=== PATIENT | female | born 1960 | race Caucasian/White ===

== ENCOUNTER 2018-08-03 00:20 | Outpatient (CLI) | payer OTHER, SELFPAY ==
--- NOTE | 2018-08-03 08:15 | DI.MAMMO_ITS ---
SYMPTOM/DIAGNOSIS: SCREENING, Z12.31 MAMMOGRAMS: Mammograms were interpreted according to the usual protocol including computer analysis with CAD system, tomosynthesis and C view imaging. Comparison with prior examinations. Breast density B. No suspicious masses or microcalcifications are seen. There is no definite evidence of malignancy. IMPRESSION: Negative mammogram. Routine screening is recommended. Category I. MQSA ASSESSMENT OF FINDINGS: Negative. Category 1. Patient will receive a letter notifying them of these results. BI-RADS category B. There are scattered areas of fibroglandular density.
== END 2018-08-03 00:40 ==
PROVIDERS: PCP Physician Assistant Medical; Visit Provider Physician Assistant Medical
DX: Z12.31 Encounter for screening mammogram for malignant neoplasm of breast (principal)
CPT/HCPCS: 77063; 77067

== ENCOUNTER 2019-10-11 02:35 | Outpatient (CLI) | payer OTHER, SELFPAY ==
--- NOTE | 2019-10-11 | DI.MAMMO_ITS ---
EXAM: MAMMO SCREENING CLINICAL HISTORY: SCREENING,Z12.31 TECHNIQUE: Mammograms were interpreted according to the usual protocol including computer analysis w [employer] CAD system, tomosynthesis and C-view imaging. COMPARISON: 2010 through 2018 FINDINGS: The breasts are composed of heterogeneously dense fibroglandular densities, Breast Density category C . No suspicious masses or suspicious microcalcifications are seen. No skin thickening or abnormal axillary lymph nodes are seen. There has been no significant change from prior exams. IMPRESSION: BI-RADS Category 1: Negative mammogram. Yearly screening mammography is recommended. Breast Density Category C, heterogeneously dense tissue which decreases the sensitivity of the mammog ami. The mammogram demonstrates the patient's breast tissue is dense. Dense breast tissue is very common a nd is not abnormal but dense breast tissue can make it harder to find cancer on a mammogram. Also, de nse breast tissue may increase breast cancer risk. This information about the result of the mammogram report was provided to the patient to raise their awareness. Use this report when you speak with the patient about their risks for breast cancer, which includes their family history. At that time, you may recommend additional screening tests (Ultrasound or MRI) as they might be useful based on their r isk. A negative radiographic report should not delay biopsy if a dominant or clinically suspicious mass is present. Up to ten percent of cancers are not identified on mammography. A negative report may reinforce clinical impression. Adenosis and dense breasts may obscure an underlying neoplasm. False positive reports average 6 to 10%.
== END 2019-10-11 02:55 ==
PROVIDERS: PCP Physician Assistant Medical; Visit Provider Physician Assistant Medical
DX: Z12.31 Encounter for screening mammogram for malignant neoplasm of breast (principal)
CPT/HCPCS: 77063; 77067

== ENCOUNTER 2021-01-29 01:40 | Outpatient (CLI) | payer OTHER, SELFPAY ==
--- NOTE | 2021-01-29 | DI.MAMMO_ITS ---
Exam(s) MAMMO SCREENING EXAM: MAMMO SCREENING CLINICAL HISTORY: SCREENING, Z12.31 TECHNIQUE: Bilateral full field digital CC and MLO mammographic images were obtained with 3D tomosyn thesis and utilizing computer aided detection (CAD). COMPARISON: Available for comparison. FINDINGS: Masses/Architectural Distortion: None seen. Microcalcifications: No suspicious pleomorphic-type are seen. Skin Thickening/Nipple Retraction: None. IMPRESSION: 1. No significant interval change with no specific features of malignancy noted. 2. Unless there is more urgent need, screening mammography is recommended, as per [place] [employer] guidelines. BI-RADS Category 1 - Negative Breast Density - Category C - Heterogeneously dense Breast density category C or D implies that the patient has dense breast tissue. Dense breast tissue is very common and is not abnormal but dense breast tissue can make it harder to find cancer on a ma mmogram. Also, dense breast tissue may increase their breast cancer risk. This information about the result of the mammogram report was provided to the patient to raise their awareness. Use this report when you speak with the patient about their risks for breast cancer, which includes their family hist ory. At that time, you may recommend for more screening tests (Ultrasound or MRI) as they might be us eful based on their risk. A negative radiographic report should not delay biopsy if a dominant or clinically suspicious mass is present. Up to ten percent of cancers are not identified on mammography. A negative report may reinforce clinical impression. Adenosis and dense breasts may obscure an underlying neoplasm. False positive reports average 6 to 10%. Patient will receive a letter notifying them of these results.
== END 2021-01-29 02:00 ==
PROVIDERS: PCP Physician Assistant Medical; Visit Provider Physician Assistant Medical
DX: Z12.31 Encounter for screening mammogram for malignant neoplasm of breast (principal); R92.8 Other abnormal and inconclusive findings on diagnostic imaging of breast
CPT/HCPCS: 77063; 77067

== ENCOUNTER → 2022-04-13 01:45 | Outpatient (CLI) | payer OTHER, SELFPAY ==
--- NOTE | 2022-04-13 12:50 | DI.MAMMO_ITS ---
Exam(s) MAMMO SCREENING EXAM: MAMMO SCREENING CLINICAL HISTORY: SCREENING FOR BREAST CANCER TECHNIQUE: Mammograms were interpreted according to the usual protocol including computer analysis w [employer] CAD system, tomosynthesis and C-view imaging. COMPARISON: 2012 through 2020 FINDINGS: The breasts are composed of heterogeneously dense fibroglandular densities, Breast Density category C . No suspicious masses or suspicious microcalcifications are seen. No skin thickening or abnormal axillary lymph nodes are seen. There has been no significant change from prior exams. IMPRESSION: BI-RADS Category 1, Negative mammogram. Yearly screening mammography is recommended. Breast Density Category C, heterogeneously Dense. The mammogram demonstrates the patient's breast tissue is dense. Dense breast tissue is very common a nd is not abnormal but dense breast tissue can make it harder to find cancer on a mammogram. Also, de nse breast tissue may increase breast cancer risk. This information about the result of the mammogram report was provided to the patient to raise their awareness. Use this report when you speak with the patient about their risks for breast cancer, which includes their family history. At that time, you may recommend additional screening tests (Ultrasound or MRI) as they might be useful based on their r isk. A negative radiographic report should not delay biopsy if a dominant or clinically suspicious mass is present. Up to ten percent of cancers are not identified on mammography. A negative report may reinforce clinical impression. Adenosis and dense breasts may obscure an underlying neoplasm. False positive reports average 6 to 10%.
== END ==
PROVIDERS: PCP Physician Assistant Medical; Visit Provider Physician Assistant Medical
DX: Z12.31 Encounter for screening mammogram for malignant neoplasm of breast (principal)
CPT/HCPCS: 77063; 77067

== ENCOUNTER → 2023-04-16 00:51 | Outpatient (CLI) | payer MEDICARE, SELFPAY ==
--- NOTE | 2023-04-16 | DI.MAMMO_ITS ---
Exam(s) MAMMO SCREENING EXAM: MAMMO SCREENING CLINICAL HISTORY: SCREENING TECHNIQUE: Bilateral full field digital CC and MLO mammographic images were obtained with 3D tomosyn thesis and utilizing computer aided detection (CAD). COMPARISON: Available for comparison. FINDINGS: Masses/Architectural Distortion: None seen. Microcalcifications: No suspicious pleomorphic-type are seen. Skin Thickening/Nipple Retraction: None. IMPRESSION: 1. No significant interval change with no specific features of malignancy noted. 2. Unless there is more urgent need, screening mammography is recommended, as per [employer] guidelines. BI-RADS Category 1 - Negative Breast Density - Category C - Heterogeneously dense Breast density category C or D implies that the patient has dense breast tissue. Dense breast tissue is very common and is not abnormal but dense breast tissue can make it harder to find cancer on a ma mmogram. Also, dense breast tissue may increase their breast cancer risk. This information about the result of the mammogram report was provided to the patient to raise their awareness. Use this report when you speak with the patient about their risks for breast cancer, which includes their family hist ory. At that time, you may recommend for more screening tests (Ultrasound or MRI) as they might be us eful based on their risk. A negative radiographic report should not delay biopsy if a dominant or clinically suspicious mass is present. Up to ten percent of cancers are not identified on mammography. A negative report may reinforce clinical impression. Adenosis and dense breasts may obscure an underlying neoplasm. False positive reports average 6 to 10%. Patient will receive a letter notifying them of these results.
--- OUTSIDE RECORDS SUMMARY | 2023-04-16 00:57 | XMS_ITS | CCD ---
Author Name Unknown Address [address] [place] [phone] Organization Unknown Address [address] [place] [address] [id number] Care Team Providers Care B2B Appointment Setter Name Role Phone MANUEL COUGHLIN Evelyn Attending Physician [phone] Vital Signs Unknown or Not Available. Allergies Unknown or Not Available. Procedures Unknown or Not Available. History of Immunizations Unknown or Not Available. Problems Unknown or Not Available. Results [facility] COVID RHEONIX* - [place] ect Date/Time: 05/11/2022 12:55 Test Name Code Test Result Test Units Test Ref Rang e Tier- 61110-7 STAFF PRIORITY N/A SARS COV2 RNA: 57778-2 NEGATIVE N/A REFERENCE RANGE: NEGAT Active Medications Unknown or Not Available. Medications Administered During Visit Unknown or Not Available. Encounters Encounter Diagnosis Diagnosis Code Start Date Exposure to SARS-CoV-2 [id number] Social History Smoking Status Code Start Date End Date Former smoker [id number] Patient Decision Aids Unknown or Not Available. Discharge Instructions You were admitted to [facility] on 05/11/2022 18:24 with a principal diagnosis of Contact with and (suspected) exposure to COVID-19 You had the following tests done:[facility] COVID RHEONIX* You were discharged from [facility] on 05/11/2022 18:24 Should you have any questions prior to discharge, please contact a member of your healthcare team. If you have left the hospital and have any questions, please contact your primary care physician. Chief Complaint and Reason For Visit Unknown or Not Available. Function Status Unknown or Not Available. Plan of Care Unknown or Not Available. Referral/Transition of Care Unknown or Not Available.
--- OUTSIDE RECORDS SUMMARY | 2023-04-16 00:57 | XMS_ITS | CCD ---
Author Name Unknown Address [address] [place] [address] [phone] Organization Unknown Address [address], [place] [id number] Care Team Providers Care Dispensary Technician Name Role Phone MANUEL COUGHLIN Attending Physician [phone] MANUEL COUGHLIN Rounding (Secondary) Physician [phone] Vital Signs Unknown or Not Available. Allergies Unknown or Not Available. Procedures Unknown or Not Available. History of Immunizations Unknown or Not Available. Problems Unknown or Not Available. Results Unknown or Not Available. Active Medications Unknown or Not Available. Medications Administered During Visit Unknown or Not Available. Encounters Encounter Diagnosis Diagnosis Code Start Date Obstructive sleep apnea (adult) (pediatric) G473 3 09/10/2021 Social History Smoking Status Code Start Date End Date Former smoker [id number] Patient Decision Aids Unknown or Not Available. Discharge Instructions You were admitted to [facility] on 09/10/2021 09:06 with a principal diagnosis of Obstructive sleep apnea (adult) (pediatric) You were discharged from [facility] on 09/10/2021 09:07 Should you have any questions prior to [...]
--- OUTSIDE RECORDS SUMMARY | 2023-04-16 00:57 | XMS_ITS | Continuity of Care Document ---
Author Name Unknown Organization [facility] Address [address] [place] [address] Care Team Providers Care Platen Press Operator Apprentice Name Role Phone Barbie Bonilla Primary Care Physician Encounter [facility] Date(s): 03/31/23 - 03/31/23 [facility] [address] [place] [address] Discharge Disposition: Home Allergies, Adverse Reactions, Alerts Substance Reaction Severity Status BRAZIL NUT Anaphylactic reaction Unknown Active atorvastatin Muscle pain Unknown Active Assessment and Plan Future Appointments Future Scheduled Tests Radiology* BD Bone Density DEXA Axial Skeleton 03/31/23 Immunizations Given and Recorded Vaccine Date Status Refusal Reason SARS-CoV-2 (COVID-19) mRNA-1273 vaccine 05/23/20 R ecorded SARS-CoV-2 (COVID-19) mRNA-1273 vaccine 04/24/20 R ecorded influenza virus vaccine, live 01/05/20 Recorded influenza virus vaccine, live 01/24/19 Recorded influenza virus vaccine, live 01/24/18 Recorded zoster vaccine, inactivated 1 09/11/19 Recorded zoster vaccine, inactivated 05/11/19 Recorded Td(adult) unspecified formulation 05/12/17 Recorde d influenza virus vaccine, inactivated 01/22/11 Dre rded influenza virus vaccine, inactivated 01/24/10 Dre rded tetanus/diphth/pertuss (Tdap) adult/adol 07/25/05 Recorded varicella virus vaccine 04/26/00 Recorded hepatitis A adult vaccine 04/26/00 Recorded measles/mumps/rubella virus vaccine 04/26/00 Recor ded 1Result Comment: pt. tolerated vaccine well Medications citalopram 20 mg oral tablet See Instructions, TAKE ONE TABLET BY MOUTH EVERY DAY, # 90 tab, 3 Refill(s), Pharmacy: [id number] Start Date: 06/03/22 Status: Ordered EpiPen 2-Reji 0.3 mg injectable kit 0.3 mg =, IM, Once, # 2 EA, 0 Refill(s), Pharmacy: [id number] Start Date: 12/17/22 Status: Ordered omeprazole 20 mg oral delayed release capsule See Instructions, TAKE ONE CAPSULE BY MOUTH EVERY DAY, # 90 cap, 3 Refill(s), Pharmacy: [id number] Start Date: 06/03/22 Status: Ordered rosuvastatin 5 mg oral tablet See Instructions, TAKE ONE TABLET BY MOUTH EVERY DAY FOR 90 DAYS, # 90 tab, 3 Refill(s), Pharmacy: [id number] Start Date: 03/02/22 Status: Ordered Problem List Condition Confirmation Course Effective Dates Status H ealth Status Informant Adult health examination Confirmed Active Allergy to nut Confirmed Active Pain in joint, ankle and foot Confirmed Active Daytime somnolence Confirmed 05/11/19 Active Depressive disorder Confirmed 05/20/21 Active Dysuria Confirmed Active Gastroesophageal reflux disease Confirmed 11/16/19 Active Hand joint pain Confirmed Active Hyperlipidemia Confirmed Active Microhematuria Confirmed Active Obstructive sleep apnea syndrome Confirmed Active Pain in limb Confirmed Active Pharyngitis Confirmed Active Restless legs Confirmed 11/10/19 Active Snoring Confirmed 08/03/18 Active Procedures Procedure Date Related Diagnosis Body Site Status Hysterectomy 03/03/22 Completed Pap smear and HPV 1 05/22/18 Compl eted Cholecystectomy 04/25/01 Completed Bunionectomy 2 04/25/99 Completed Eye procedure 3 04/25/97 Completed 1PAP w/ HPV testing Negative for HPV 2018 2Left foot 3bilateral eye surg. Social History Social History Type Response Tobacco Former tobacco user Tobacco Use:. 1 Sex Female 89, a few cigarettes/day. quit 1987 Patient Care team information Care Team Personnel Name: Barbie Bonilla PA-C Position: Physician Member Role: Primary Care Physician Address: Address: [address] [place] [phone]
--- OUTSIDE RECORDS SUMMARY | 2023-04-16 00:58 | XMS_ITS | Continuity of Care Document ---
Author Name Unknown Organization [facility] Address [address] [place] [address] Encounter [facility] NBR [id number] Date(s): 03/26/22 - 03/26/22 [facility] [address] [place], [place] [address] Encounter Diagnosis Postoperative visit(Discharge Diagnosis) - 03/26/22 Cystocele and rectocele with incomplete uterovaginal prolapse(Discharge Diagnosis) - 03/26/22 Stress incontinence of urine(Discharge Diagnosis) - 03/26/22 Urge incontinence of urine(Discharge Diagnosis) - 03/26/22 Fatigue(Discharge Diagnosis) - 03/26/22 Discharge Disposition: Home or Self Care Attending Physician: Will Holly Allergies, Adverse Reactions, Alerts Substance Reaction Severity Status Risco nut Anaphylactic reaction Severe Active Assessment and Plan Future Appointments Functional Status 03/26/22 Other exposure to Infectious Disease Non e Medications aspirin 81 mg oral delayed release tablet 81 mg = 1 tab, Daily, 1 Unknown, 0 Refill(s) Start Date: 02/20/22 Status: Ordered citalopram 20 mg oral tablet 20 mg = 1 tab, Daily, 1 Unknown, 0 Refill(s) Start Date: 02/20/22 Status: Ordered Co-Q10 100 mg oral capsule 100 mg = 1 cap, Oral, Daily, # 30 cap, 0 Refill(s) Start Date: 03/13/22 Status: Ordered glucosamine-chondroitin 500 mg-400 mg oral capsule 1 tablet, Oral, BID, 1500 mg twice/day, 0 Refill(s) Start Date: 03/13/22 Status: Ordered ICaps with Lutein and Zeaxan oral tablet 1 tab, Oral, BID, # 60 tab, 0 Refill(s) Start Date: 03/26/22 Status: Ordered omeprazole 20 mg oral delayed release capsule 20 mg = 1 cap, Oral, Daily, 0 Refill(s) Start Date: 02/20/22 Status: Ordered rosuvastatin 5 mg oral tablet 5 mg = 1 tab, Daily, 1 Unknown, 0 Refill(s) Start Date: 02/20/22 Status: Ordered Vitamin D3 1000 intl units oral capsule 25 mcg = 1 cap, Oral, BID, # 75 cap, 0 Refill(s) Start Date: 03/13/22 Status: Ordered Problem List Condition Confirmation Course Effective Dates Status H ealth Status Informant Asthma Confirmed Active Cystocele and rectocele with incomplete uterovaginal prolapse Confirmed Active Stress incontinence of urine Confirmed Active GERD - Gastro-esophageal reflux disease Confirmed Active HLD - Hyperlipidemia Confirmed Active Joint pain Confirmed Active PORTIA - Obstructive sleep apnea 1 Confirmed Active Postoperative visit Confirmed Active Restless legs syndrome Confirmed Active Urge incontinence of urine Confirmed Active 1wears oral appliance Procedures Procedure Date Related Diagnosis Body Site Status Colporrhaphy A & P Repair 1 03/03/22 Completed Hysterectomy Vaginal 2 03/03/22 Co mpleted Sling Vaginal 3 03/03/22 Completed Aspiration of ectopic pregna ncy from cornu of fallopian tube Complete d Cholecystectomy Completed Excision of bunion Comple brenna HEARD Completed 1auto-populated from documented surgical case 2auto-populated from documented surgical case 3auto-populated from documented surgical case Vital Signs Most recent to oldest [Reference Range]: 1 Blood Pressure [90-140/60-90 mmHg] 146/9 8mmHg *HI* (03/26/22 11:35 AM) Weight 72.4 kg (03/26/22 11:35 AM) Weight Measured (lbs) 159.614 lb (03/26/22 11:35 AM) Social History Social History Type Response Smoking Status Smoking tobacco use: Former tobacco user;Never; Stopped at age: 58; entered on: 03/26/22 Sex Female Implantable Device List Procedure Provider Procedure Date Device Type Site Laparoscopy, surgical; sling operation for stress incontinence (eg, fascia or synthetic) Will Holly 03/03/22 Non Biological Bladder Device Identifier Serial Number Lot or Batch Number Manufacturing Date Expiration Date Distinct Identification Code MRI Safety Implantable Status Assigning Authority Unknown Unknown [id number] Unknown 08/22/24 Unknown Unknown Active Unk nown Physician Outpatient Note * Will Holly: PERFORM Event Display: Office Clinic Note Physician Authored Date: [id number] BIGG SO :1960 Age:62 years Sex:Female Visit Date:03/26/2022 Chief Complaint Postoperative follow-up History of Present Illness 62yo Female, The patient is here today for a follow-up??postoperative appointment. ??She had a Vaginal??Hysterectomy, Uterosacral Ligament Vaginal Suspension, TVT Vaginal Sling, and Anterior??/ Posterior??Colporrhaphy on 03/03/2022 due to Incomplete??Uterovaginal??Prolapse??with??Cystocele and??Rectocele and Stress??Urinary??Incontinence. ??She is here today to have a vaginal exam. ??2 weeks postoperative appointment??she was unable to tolerate??vaginal exam due to pain. ?? Pathology Report- inactive endometrium.?? Cervix,??myometrium, and serosa without pathologic abnormality. ?? Since her last appointment,??she has been doing well.?There is no??longer any pain. ??She hada single episode of light vaginal spotting??after chasing her dog. She is able to urinate??without difficulty.?She does not have??any??urgency incontinence symptoms or nocturia. ??There is occasional stress incontinence,but??only a few drops, nothing like??the??volume she would leak previously.?? Bowel movements are regular??each day??taking stool softeners.??She has fatigue and is worried that she may be anemic due to blood loss from surgery. Physical Exam Vitals & Measurements BP:??146/98?? WT:??72.4??kg?? GENERAL: Cooperative, alert, no acute distress. HEENT: Head is normocephalic, atraumatic. PERRLA.?? HEART: Regular rate and rhythm without murmur. LUNGS: Clear to auscultation bilaterally, no wheeze, rales or rhonchi. ABDOMEN: Soft, non-tender, nondistended. Bowel sounds active throughout. Incisions: Intact, healed well. No signs of infection. ? Vulva- Normal female genitalia Vagina: No abnormal discharge or blood.?Incisions intact. ??No palpable??masses Assessment/Plan 1.??Postoperative visit??Z48.89 Ordered: CBC w/ Diff, Blood, Routine, 03/26/22, Once, Lab Collect, Postoperative visit Fatigue, Order for future visit ?? 2.??Cystocele and rectocele with incomplete uterovaginal prolapse??N81.2 ?? 3.??Stress incontinence of urine??N39.3 ?? 4.??Urge incontinence of urine??N39.41 ?? 5.??Fatigue??R53.83 Ordered: CBC w/ Diff, Blood, Routine, 03/26/22, Once, Lab Collect, Postoperative visit Fatigue, Order for future visit ?? At today's appointment, we reviewed??the progress that she is making??so far. ??She is doing well??at this point after surgery. Future Orders CBC w/ Diff, Blood, Routine, 03/26/22, Once, Lab Collect, Postoperative visit Fatigue, Order for future visit Problem List/Past Medical History Ongoing Asthma Cystocele and rectocele with incomplete uterovaginal prolapse GERD - Gastro-esophageal reflux disease HLD - Hyperlipidemia Joint pain PORTIA - Obstructive sleep apnea Postoperative visit Restless legs syndrome Stress incontinence of urine Urge incontinence of urine Historical Procedure/Surgical History ? ?Colporrhaphy A & P Repair (03/03/2022)? ?Hysterectomy Vaginal (03/03/2022)? ?Sling Vaginal (03/03/2022)???Aspiration of ectopic from cornu of fallopian tube???Cholecystectomy???Excision of bunion???LASIK Medications aspirin 81 mg oral delayed release tablet, 81 mg= 1 tab, Daily citalopram 20 mg oral tablet, 20 mg= 1 tab, Daily Co-Q10 100 mg oral capsule, 100 mg= 1 cap, Oral, Daily glucosamine-chondroitin 500 mg-400 mg oral capsule, 1 tablet, Oral, BID ICaps with Lutein and Zeaxan oral tablet, 1 tab, Oral, BID omeprazole 20 mg oral delayed release capsule, 20 mg= 1 cap, Oral, Daily rosuvastatin 5 mg oral tablet, 5 mg= 1 tab, Daily Vitamin D3 1000 intl units oral capsule, 25 mcg= 1 cap, Oral, BID Allergies Risco nut??(Anaphylactic reaction) Social History Alcohol Current, 3-5 times per week Electronic Cigarette/Vaping Electronic Cigarette Use: Never. 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 Highest education level: University degree(s). Home/Environment Lives with Spouse. Living situation: Home/Independent. Substance Use Never Tobacco Former tobacco user Tobacco Use:. Stopped age 58 Years. Never Smokeless Tobacco use:. Electronically Signed on 03/26/22 12:14 PM Will Holly
--- OUTSIDE RECORDS SUMMARY | 2023-04-16 00:58 | XMS_ITS | CCD ---
Author Name Unknown Address [address] [place] [address] [id number] Organization Unknown Address [address] [place], [place] [id number] Care Team Providers Care Sourcing Assistant Name Role Phone SRIDHAR MCALLISTER Attending Physician [phone] Vital Signs Unknown or Not Available. Allergies Unknown or Not Available. Procedures Unknown or Not Available. History of Immunizations Unknown or Not Available. Problems Unknown or Not Available. Results Unknown or Not Available. Active Medications Unknown or Not Available. Medications Administered During Visit Unknown or Not Available. Encounters Encounter Diagnosis Diagnosis Code Start Date Obstructive sleep apnea (adult) (pediatric) G473 3 11/28/2020 Social History Smoking Status Code Start Date End Date Former smoker [id number] Patient Decision Aids Unknown or Not Available. Discharge Instructions You were admitted to [facility] on 11/28/2020 12:19 with a principal diagnosis of Obstructive sleep apnea (adult) (pediatric) You were discharged from [facility] on 11/28/2020 12:19 Should you have any questions prior to [...]
--- OUTSIDE RECORDS SUMMARY | 2023-04-16 00:58 | XMS_ITS | Continuity of Care Document ---
Author Name Unknown Organization [facility] Ambulatory Clinics Address [address] [place] [address] Encounter [facility] NBR [id number] Date(s): 02/20/22 - 02/20/22 [facility] Ambulatory Clinics [address] [place], [place] [address] Encounter Diagnosis Cystocele and rectocele with incomplete uterovaginal prolapse(Discharge Diagnosis) - 02/20/22 Urge incontinence of urine(Discharge Diagnosis) - 02/20/22 Stress incontinence of urine(Discharge Diagnosis) - 02/20/22 Discharge Disposition: Home or Self Care Attending Physician: Will Holly Assessment and Plan Future Appointments Medications aspirin 81 mg oral delayed release tablet 1 Unknown, 0 Refill(s) Start Date: 02/20/22 Status: Ordered citalopram 20 mg oral tablet 1 Unknown, 0 Refill(s) Start Date: 02/20/22 Status: Ordered omeprazole 20 mg oral delayed release capsule 0 Refill(s) Start Date: 02/20/22 Status: Ordered rosuvastatin 5 mg oral tablet 1 Unknown, 0 Refill(s) Start Date: 02/20/22 Status: Ordered Problem List Condition Confirmation Course Effective Dates Status [facility] atus Informant Cystocele and rectocele with incomplete uterovaginal prolapse Confirmed Active Stress incontinence of urine Confirmed Active Urge incontinence of urine Confirmed Active Social History Social History Type Response Sex Female
--- OUTSIDE RECORDS SUMMARY | 2023-04-16 00:58 | XMS_ITS | Continuity of Care Document ---
Author Name Unknown Organization [facility] Ambulatory Clinics Address [address] [place] [address] Encounter [facility] NBR [id number] Date(s): 03/13/22 - 03/13/22 [facility] Ambulatory Clinics [address] [place], [place] [address] Encounter Diagnosis Postoperative visit(Discharge Diagnosis) - 03/13/22 Cystocele and rectocele with incomplete uterovaginal prolapse(Discharge Diagnosis) - 03/13/22 Stress incontinence of urine(Discharge Diagnosis) - 03/13/22 Urge incontinence of urine(Discharge Diagnosis) - 03/13/22 Discharge Disposition: Home or Self Care Attending Physician: Will Holly Allergies, Adverse Reactions, Alerts Substance Reaction Severity Status [place] nut Anaphylactic reaction Severe Active Assessment and Plan Future Appointments Functional Status 03/13/22 Other exposure to Infectious Disease Non e [...] mg oral capsule 1 tablet, Oral, BID, 0 Refill(s) Start Date: 03/13/22 Status: Ordered ibuprofen 600 mg oral tablet 600 mg = 1 tab, Oral, every 6 hr, PRN as needed for pain, # 30 tab, 0 Refill(s), Pharmacy: [facility], 163, cm, 03/03/22 16:04:00 EST, Height/Length Dosing, 73, kg, 03/03/22 16:04:00 EST,Weight Dosing Start Date: 03/03/22 Status: Ordered omeprazole 20 mg oral delayed release capsule 20 mg = 1 cap, Oral, Daily, 0 Refill(s) Start Date: 02/20/22 Status: Ordered PreserVision AREDS 2 oral capsule 1 cap, Oral, BID, # 60 cap, 0 Refill(s) Start Date: 03/13/22 Status: Ordered rosuvastatin 5 mg oral tablet [...] [Reference Range]: 1 Blood Pressure [90-140/60-90 mmHg] 142/9 0mmHg *HI* (03/13/22 8:33 AM) Weight 72.5 kg (03/13/22 8:33 AM) Weight Measured (lbs) 159.835 lb (03/13/22 8:33 AM) [place] Body Weight Calculated 54.7 kg (03/13/22 8:33 AM) Height 162.56 cm (03/13/22 8:33 AM) Height/Length Measured (inches) 64 inch (03/13/22 8:33 AM) BSA Measured 1.81 m2 (03/13/22 8:33 AM) Body Mass Index 27.44 kg/m2 (03/13/22 8:33 AM) Social History Social History Type Response Tobacco Former tobacco user Tobacco Use:. Stopped age 58 Years. Sex Female Implantable Device List Procedure Provider Procedure Date Device Type Site Laparoscopy, surgical; sling operation for stress incontinence (eg, fascia or synthetic) Will Holly 03/03/22 Non Biological Bladder Device Identifier Serial Number Lot or Batch Number Manufacturing Date Expiration Date Distinct Identification Code MRI Safety Implantable Status Assigning Authority Unknown Unknown [id number] Unknown 08/22/24 Unknown Unknown Active k [facility] Discharge Instructions Follow Up Care 01/27/2022 18:29:03 With:Will Holly Address: [address] [place] [id number] When:Within 10 Day(s) Comments:Postoperative follow-up Physician Outpatient Note * Will Holly: PERFORM Event Display: Office Clinic Note Physician Authored Date: [id number] BIGG SO :1960 Age:61 years Sex:Female Visit Date:03/13/2022 Chief Complaint Two week post op appointment - surgery 03/03/2022 History of Present Illness 61yo Female, The patient is here today for a 2 weeks Postoperative appointment. ??She had a Vaginal??Hysterectomy, Uterosacral Ligament Vaginal Suspension, TVT Vaginal Sling, and Anterior??/ Posterior??Colporrhaphy on 03/03/2022 due to Incomplete??Uterovaginal??Prolapse??with??Cystocele and??Rectocele and Stress??Urinary??Incontinence. ?? Pathology Report- inactive endometrium.?? Cervix,??myometrium, and serosa without pathologic abnormality. ?? Since surgery,??she has been doing well.?? She still has??some??pain??in the suprapubic region and perineum.?? She continues to take??ibuprofen and Tylenol. ??She has not??needed oxycodone for several days.?? There is no fever, nausea, vomiting,??or dysuria. ??There is light vaginal spotting at times. ??She is able to urinate??without difficulty and is having normal bowel movements. Physical Exam Vitals & Measurements BP:??142/90?? HT:??162.56??cm?? WT:??72.5??kg?? BMI:??27.44?? BSA:??1.81?? GENERAL: Cooperative, alert, no acute distress. HEENT: Head is normocephalic, atraumatic. PERRLA.?? HEART: Regular rate and rhythm without murmur. LUNGS: Clear to auscultation bilaterally, no wheeze, rales or rhonchi. ABDOMEN: Soft, non-tender, nondistended. Bowel sounds active throughout. Incisions: Intact, healing well.?? No signs of infection. EXTREMITIES: No edema or tenderness. NEURO: CN II-XII grossly intact. Vulva:Normal external female genitalia Vagina: No abnormal discharge or blood.?Unable to do internal exam due to patient discomfort. Assessment/Plan 1.??Postoperative visit??Z48.89 2.??Cystocele and rectocele with incomplete uterovaginal prolapse??N81.2 3.??Stress incontinence of urine??N39.3 4.??Urge incontinence of urine??N39.41 At today's appointment, we reviewed the findings at the time of surgery and the Pathology Report. ??She is progressing well??without any problems.?? I asked her to come back to the office??in 1 to 2 weeks??after the holiday??for an exam. Follow Up Instructions With When Contact Information Will Holly In 10 days [address] [place] [address] Additional Instructions: Postoperative follow-up Problem List/Past Medical History Ongoing Asthma Cystocele [...] mg oral capsule, 1 tablet, Oral, BID ibuprofen 600 mg oral tablet, 600 mg= 1 tab, Oral, every 6 hr, PRN omeprazole 20 mg oral delayed release capsule, 20 mg= 1 cap, Oral, Daily PreserVision AREDS 2 oral capsule, 1 cap, Oral, BID rosuvastatin 5 mg oral tablet, 5 mg= 1 tab, Daily Vitamin D3 1000 intl units oral capsule, 25 mcg= 1 cap, Oral, BID Allergies [place] nut??(Anaphylactic reaction) Social History Alcohol Current, 3-5 times per week Electronic Cigarette/Vaping Electronic Cigarette Use: Never. 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 Highest education level: University degree(s). Home/Environment Lives with Spouse. Living situation: Home/Independent. Substance Use Never Tobacco Former tobacco user Tobacco Use:. Stopped age 58 Years. Electronically Signed on 03/13/22 09:20 AM Will Holly
--- OUTSIDE RECORDS SUMMARY | 2023-04-16 00:58 | XMS_ITS | Continuity of Care Document ---
Author Name Unknown Organization [facility] Address [address] [place] [id number] Encounter [facility] NBR [id number] Date(s): 03/26/22 - 03/26/[address] [address] [place] Discharge Disposition: Home or Self Care Attending Physician: Will Holly Admitting Physician: Will Holly Allergies, Adverse Reactions, Alerts Substance Reaction Severity Status [place] nut Anaphylactic reaction Severe Active Assessment and Plan Future Appointments Medications aspirin [...] surgical case 3auto-populated from documented surgical case Results Laboratory List Name Date Automated Diff 03/26/22 CBC w/ Diff 03/26/22 Most recent to oldest [Reference Range]: 1 WBC [4.8-10.8 K/mcL] 9.5 K/mcL (03/26/22 12:42 PM) RBC [4.20-6.10 Million/mcL] 4.20 Million /mcL (03/26/22 12:42 PM) Neutro Auto [42.2-75.2 %] 62.1 % (03/26/22 12:42 PM) Lymph Auto [20.5-51.1 %] 26.2 % (03/26/22 12:42 PM) [place] Auto [1.7-9.3 %] 7.8 % (03/26/22 12:42 PM) Basophil Auto [0.0-0.8 %] 0.7 % (03/26/22 12:42 PM) Baso Absolute [0.0-0.2 K/mcL] 0.1 K/mcL (03/26/22 12:42 PM) MCV [80.0-99.0 fL] 91.9 fL (03/26/22 12:42 PM) MCHC [32.0-36.0 g/dL] 33.7 g/dL (03/26/22 12:42 PM) Lymph Absolute [1.2-3.4 K/mcL] 2.5 K/mcL (03/26/22 12:42 PM) Hct [37.0-52.0 %] 38.6 % (03/26/22 12:42 PM) [place] Absolute [0.1-0.6 K/mcL] 0.7 K/mcL *HI* (03/26/22 12:42 PM) MCH [27.0-31.0 pg] 31.0 pg (03/26/22 12:42 PM) Neutro Absolute [1.4-6.5 K/mcL] 5.9 K/mc L (03/26/22 12:42 PM) Hgb [12.0-18.0 g/dL] 13.0 g/dL (03/26/22 12:42 PM) MPV [7.4-10.4 fL] 9.2 fL (03/26/22 12:42 PM) Platelets [130-400 K/mcL] 426 K/mcL *HI* (03/26/22 12:42 PM) Eos Absolute [0.0-0.2 K/mcL] 0.3 K/mcL *HI* (03/26/22 12:42 PM) RDW-CV [11.5-14.5 %] 13.4 % (03/26/22 12:42 PM) Imm Gran Absolute 0.02 *NA* (03/26/22 12:42 PM) Imm Gran Auto [0.0-0.5 %] 0.2 % (03/26/22 12:42 PM) Eos, Auto [0.00-3.00 %] 3.00 % (03/26/22 12:42 PM) Social History Social History Type Response Smoking [...] Safety Implantable Status Assigning Authority Unknown Unknown [id number] Unknown 08/22/24 Unknown Unknown Active Unk ebonyn
--- OUTSIDE RECORDS SUMMARY | 2023-04-16 00:58 | XMS_ITS | Continuity of Care Document ---
Author Name Unknown Organization [facility] Ambulatory Clinics Address [address] [place] [address] Care Team Providers Care Wirer Passenger Car Name Role Phone RAJ SIU Primary Care Physician [phone] Encounter [facility] NBR [id number] Date(s): 05/04/22 - 05/04/22 [facility] Ambulatory Clinics [address] [place], [place] [address] Encounter Diagnosis Postoperative visit(Discharge Diagnosis) - 05/04/22 Discharge Disposition: Home or Self Care Attending Physician: Will Holly Allergies, Adverse Reactions, Alerts Substance Reaction Severity Status [place] nut Anaphylactic reaction Severe Active Functional Status 05/04/22 Other exposure to Infectious Disease Non e [...] 0 Refill(s) Start Date: 03/13/22 Status: Ordered estradiol 0.1 mg/g vaginal cream See Instructions, 1 g VAG every night for 7 nights then twice weekly, # 42.5 g, 0 Refill(s), Pharmacy: [id number], 163, cm, 03/03/22 16:04:00 EST, Height/Length Dosing, 73, kg, 03/03/22 16:04:00 EST, Weight Dosing Start Date: 04/13/22 Status: Ordered glucosamine-chondroitin 500 mg-400 mg oral [...] Cholecystectomy Completed Excision of bunion Comple brenna IRAJESSIE Completed 1auto-populated from documented surgical case 2auto-populated from documented surgical case 3auto-populated from documented surgical case Vital Signs Most recent to oldest [Reference Range]: 1 Blood Pressure [90-140/60-90 mmHg] 146/9 0mmHg *HI* (05/04/22 9:55 AM) Weight 72.8 kg (05/04/22 9:55 AM) Weight Measured (lbs) 160.496 lb (05/04/22 9:55 AM) Social History Social History Type Response [...] Safety Implantable Status Assigning Authority Unknown Unknown [id number] Unknown 08/22/24 Unknown Unknown Active Unk ebonyn Physician Outpatient Note * Will Holly: PERFORM Event Display: Office Clinic Note Physician Authored Date: [id number] BIGG SO :1960 Age:62 years Sex:Female Visit Date:05/04/2022 Primary Care Physician: RAJ SIU Chief Complaint Postoperative appointment History of Present Illness 62yo Female, The patient is here today for a Postoperative Follow-up??appointment. ??She had a Vaginal??Hysterectomy, Uterosacral Ligament Vaginal Suspension, TVT Vaginal Sling, and Anterior??/ Posterior??Colporrhaphy on 03/03/2022 due to Incomplete??Uterovaginal??Prolapse??with??Cystocele and??Rectocele and Stress??Urinary??Incontinence.?? At her last appointment on??04/13/2022, parts of??her??vaginal incisions had not completely??healed, and along with vaginal atrophy??recommended a course of??vaginal estradiol cream. ?? Pathology Report- inactive endometrium.?? Cervix,??myometrium, and serosa without pathologic abnormality. ?? Since her last appointment,??she has been doing well.?There is no??longer any pain.??She is able to urinate??without difficulty and is having normal bowel movements. ??Occasional??RICHARD??with sneezing, no??urinary urgency.?No vaginal bleeding or discharge. Physical Exam Vitals & Measurements BP:??146/90?? WT:??72.8??kg?? GENERAL: Cooperative, alert, no acute distress. HEENT: Head is normocephalic, atraumatic. PERRLA.?? HEART: Regular rate and rhythm without murmur. LUNGS: Clear to auscultation bilaterally, no wheeze, rales or rhonchi. ABDOMEN: Soft, non-tender, nondistended. Bowel sounds active throughout. INCISIONS: Intact, healed well.?? No signs of infection. EXTREMITIES: No edema or tenderness. ?? Vulva:Normal external female genitalia Vagina: Atrophic mucosa. ??Vaginal cuff and??Incisions intact, healed well.??No abnormal discharge or blood.?? Assessment/Plan 1.??Postoperative visit??Z48.89 At today's appointment, we reviewed??her surgery and postoperative course.?? She has healed??well and may??resume??her usual??activities. Problem List/Past Medical History Ongoing Asthma Cystocele [...] capsule, 100 mg= 1 cap, Oral, Daily estradiol 0.1 mg/g vaginal cream, See Instructions glucosamine-chondroitin 500 mg-400 mg oral capsule, 1 tablet, Oral, BID ICaps with Lutein and [place] oral tablet, 1 tab, Oral, BID omeprazole 20 mg oral delayed release capsule, 20 mg= 1 cap, Oral, Daily rosuvastatin 5 mg oral tablet, 5 mg= 1 tab, Daily Vitamin D3 1000 intl units oral capsule, 25 mcg= 1 cap, Oral, BID Allergies [place] nut??(Anaphylactic reaction) Social History Alcohol Current, 3-5 times per week Electronic Cigarette/Vaping Electronic Cigarette Use: Never. 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 Highest education level: University degree(s). Home/Environment Lives with Spouse. Living situation: Home/Independent. Substance Use Never Tobacco Former tobacco user Tobacco Use:. Stopped age 58 Years. Never Smokeless Tobacco use:. Electronically Signed on 05/04/22 10:16 AM Will Holly Patient Care team information Personnel Name: RAJ SIU Address: Address: [address] [place], [place] [address], [place] [address]-
--- OUTSIDE RECORDS SUMMARY | 2023-04-16 00:58 | XMS_ITS | Continuity of Care Document ---
Author Name Unknown Organization [facility] Address [address] [place] [id number] Care Team Providers Care Director Economic Name Role Phone RAJ SIU Primary Care Physician [phone] Encounter [facility] NBR [id number] Date(s): 07/02/22 - 07/02/[address] [address] [place] Encounter Diagnosis Dysuria(Discharge Diagnosis) - 07/02/22 Hematuria(Discharge Diagnosis) - 07/02/22 Discharge Disposition: Home or Self Care Attending Physician: Will Holly Admitting Physician: Will Holly Allergies, Adverse Reactions, Alerts Substance Reaction Severity Status [place] nut Anaphylactic reaction Severe Active Assessment and Plan Future Appointments Diagnostic Tests Pending * Urine Culture 07/02/22 Future Scheduled Tests Laboratory* Urine Culture 06/30/22 Medications aspirin 81 mg oral delayed release [...] weekly, # 42.5 g, 0 Refill(s), Pharmacy: [id number], 163, cm, 03/03/22 16:04:00 EST, Height/Length [...] surgical case Results Laboratory List Name Date .Urinalysis POCT 07/02/22 Most recent to oldest [Reference Range]: 1 Specific [place], Ur POC 1.000 *NA* (07/02/22 9:20 AM) Specimen Color POC [Yellow] Light Yellow (07/02/22 9:20 AM) Glucose, Urine POC Negative mg/dL *NA* (07/02/22 9:20 AM) Bilirubin, Urine POC [Negative] Negative (07/02/22 9:20 AM) Ketones, Urine POC [Negative mg/dL] Nega tive mg/dL (07/02/22 9:20 AM) Blood, Urine POC [Negative] Large *ABN* (07/02/22 9:20 AM) pH, Urine POC 6.50 *NA* (07/02/22 9:20 AM) Protein, Urine POC [Negative mg/dL] Trac e mg/dL *ABN* (07/02/22 9:20 AM) Urobilinogen, Urine POC [0.2] 0.2 (07/02/22 9:20 AM) Nitrite, Urine POC [Negative] Negative (07/02/22 9:20 AM) Leuk Esterase, Urine POC [Negative] Nega tive (07/02/22 9:20 AM) Clarity, Urine POC [Clear] Clear (07/02/22 9:20 AM) Social History Social History Type Response [...] Safety Implantable Status Assigning Authority Unknown Unknown [id number] Unknown 08/22/24 Unknown Unknown Active Nataliya torres Patient Care team information Care Team Personnel Name: RAJ SIU Position: No Access Member Role: Primary Care Physician Address: Address: [address] [place] [address] Care Team Related Persons Name: DULCE SO Address: Home [address] [place] [address] [facility] Name: DULCE SO Address: Home [address] [place], [place] [id number] [facility]
--- OUTSIDE RECORDS SUMMARY | 2023-04-16 00:58 | XMS_ITS | Continuity of Care Document ---
Author Name Unknown Organization [facility] Address [address] [place] [id number] Encounter LTTL_VA FIN NBR [id number] Date(s): 03/03/22 - 03/04/[address] [address] Encounter Diagnosis Status post vaginal hysterectomy(Discharge Diagnosis) - 03/03/22 Status post anterior colporrhaphy(Discharge Diagnosis) - 03/03/22 History of stress incontinence procedure using tension free vaginal tape (Discharge Diagnosis) - 03/03/22 Cystocele and rectocele with incomplete uterovaginal prolapse(Discharge Diagnosis) - 03/03/22 Stress incontinence of urine(Discharge Diagnosis) - 03/03/22 Incomplete uterovaginal prolapse(Final) - Urge incontinence(Final) - Stress incontinence (female) (male)(Final) - Contact with and (suspected) exposure to COVID-19(Final) - Discharge Disposition: Home or Self Care Attending Physician: Will Holly Admitting Physician: Will Holly Allergies, Adverse Reactions, Alerts 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 03/03/22 Dinner Percent 100 03/03/22 Living Environment No Living Environmen t Information Available Lives With Spouse Living Situation Home independently 03/03/22 Family Member Travel History No recent t ravel Recent Travel History No recent travel Other exposure to Infectious Disease Non e 03/03/22 Anti-Embolism Device Activity: In place 03/03/22 Anti-Embolism Site Condition: No complic ations 03/03/22 ADLs Independent Antiembolism Device Intermittent pneumat ic compression devices, knee high, bilat Medications aspirin 81 mg oral delayed release tablet 81 mg = 1 tab, Daily, 1 Unknown, 0 Refill(s) Start Date: 02/20/22 Status: Ordered citalopram 20 mg oral tablet 20 mg = 1 tab, Daily, 1 Unknown, 0 Refill(s) Start Date: 02/20/22 Status: Ordered ibuprofen 600 mg oral tablet 600 mg = 1 tab, Oral, every 6 hr, PRN as needed for pain, # 30 tab, 0 Refill(s), Pharmacy: [facility], 163, cm, 03/03/22 16:04:00 EST, Height/Length Dosing, 73, kg, 03/03/22 16:04:00 EST,Weight Dosing Start Date: 03/03/22 Status: Ordered omeprazole 20 mg oral delayed release capsule 20 mg = 1 cap, Oral, Daily, 0 Refill(s) Start Date: 02/20/22 Status: Ordered oxyCODONE 5 mg oral capsule 5 mg = 1 cap, Oral, every 6 hr, PRN as needed for pain, # 8 cap, 0 Refill(s), Pharmacy: [facility], 163, cm, 03/03/22 16:04:00 EST, Height/Length Dosing, 73, kg, 03/03/22 16:04:00 EST, Weight Dosing Start Date: 03/03/22 Status: Ordered ProAir HFA 90 mcg/inh inhalation aerosol 1 puffs, Inhale, every 4 hr, PRN as needed for wheezing, # 8.5 g, 0 Refill(s) Start Date: 02/27/22 Status: Ordered rosuvastatin 5 mg oral tablet [...] - Obstructive sleep apnea 1 Confirmed Active Restless legs syndrome Confirmed Active [...] surgical case Results Laboratory List Name Date CBC w/ Diff 03/04/22 Automated Diff 03/03/22 CBC w/ Diff 03/03/22 SARS-CoV-2 (COVID-19) PCR (GeneXpert) (C OVID 19 (GeneXpert)) 03/03/22 Automated Diff 03/02/22 Most recent to oldest [Reference Range]: 1 2 WBC [4.8-10.8 K/mcL] 8.0 K/mcL (03/04/22 6:21 AM) 6.7 K/mcL (03/03/22 6:56 AM) RBC [4.20-6.10 Million/mcL] 3.41 Million /mcL *LOW* (03/04/22 6:21 AM) 4.44 Million/mcL (03/03/22 6:56 AM) Neutro Auto [42.2-75.2 %] 67.1 % (03/04/22 6:21 AM) 62.1 % (03/03/22 6:56 AM) Lymph Auto [20.5-51.1 %] 23.2 % (03/04/22 6:21 AM) 24.9 % (03/03/22 6:56 AM) Highland Auto [1.7-9.3 %] 8.1 % (03/04/22 6:21 AM) 7.4 % (03/03/22 6:56 AM) Basophil Auto [0.0-0.2 %] 0.6 % *HI* (03/04/22 6:21 AM) 1.2 % *HI* (03/03/22 6:56 AM) Baso Absolute [0.0-0.2 K/mcL] 0.0 K/mcL (03/04/22 6:21 AM) 0.1 K/mcL (03/03/22 6:56 AM) MCV [80.0-99.0 fL] 92.1 fL (03/04/22 6:21 AM) 90.8 fL (03/03/22 6:56 AM) MCHC [32.0-36.0 g/dL] 33.8 g/dL (03/04/22 6:21 AM) 34.0 g/dL (03/03/22 6:56 AM) Lymph Absolute [1.2-3.4 K/mcL] 1.9 K/mcL (03/04/22 6:21 AM) 1.7 K/mcL (03/03/22 6:56 AM) Hct [37.0-52.0 %] 31.4 % *LOW* (03/04/22 6:21 AM) 40.3 % (03/03/22 6:56 AM) Highland Absolute [0.1-0.6 K/mcL] 0.6 K/mcL (03/04/22 6:21 AM) 0.5 K/mcL (03/03/22 6:56 AM) MCH [27.0-31.0 pg] 31.1 pg *HI* (03/04/22:21 AM) 30.9 pg (03/03/22 6:56 AM) Neutro Absolute [1.4-6.5 K/mcL] 5.4 K/mc L (03/04/22 6:21 AM) 4.1 K/mcL (03/03/22 6:56 AM) Hgb [12.0-18.0 g/dL] 10.6 g/dL 1 *LOW* (03/04/22 6:21 AM) 13.7 g/dL (03/03/22 6:56 AM) MPV [7.4-10.4 fL] 9.5 fL (03/04/22 6:21 AM) 9.1 fL (03/03/22 6:56 AM) Platelets [130-400 K/mcL] 251 K/mcL (03/04/22 6:21 AM) 317 K/mcL (03/03/22 6:56 AM) Eos Absolute [0.0-0.2 K/mcL] 0.1 K/mcL (03/04/22 6:21 AM) 0.3 K/mcL *HI* (03/03/22 6:56 AM) RDW-CV [11.5-14.5 %] 12.9 % (03/04/22 6:21 AM) 12.6 % (03/03/22 6:56 AM) Imm Gran Absolute 0.01 *NA* (03/04/22 6:21 AM) 0.02 *NA* (03/03/22 6:56 AM) Imm Gran Auto [0.0-0.5 %] 0.1 % (03/04/22 6:21 AM) 0.3 % (03/03/22 6:56 AM) SARS-CoV-2 (COVID-19) PCR (G eneXpert) [Negative] Negative (03/03/22 6:25 AM) Employed in healthcare? No *NA* (03/03/22 6:25 AM) Symptomatic as defined by CDC? No *NA* (03/03/22 6:25 AM) Hospitalized due to COVID-19? No *NA* (03/03/22 6:25 AM) In ICU? No *NA* (03/03/22 6:25 AM) Group care resident? No *NA* (03/03/22 6:25 AM) status? Not *NA* (03/03/22 6:25 AM) Eos, Auto [0.00-3.00 %] 0.90 % (03/04/22 6:21 AM) 4.10 % *HI* (03/03/22 6:56 AM) 1Result Comment: Results verified by repeat analysis. Vital Signs Most recent to oldest [Reference Range]: 1 2 3 Temperature Temporal Artery [36-38 Deg C] 37.3 Deg C (03/04/22 7:35 AM) 37.3 Deg C (03/04/22 5:00 AM) 37.7 Deg C (03/04/22 12:00 AM) Temperature Temporal Artery (DegF) [97.3-100 Deg F] 99.14 Deg F (03/04/22 7:35 AM) 99.14 Deg F (03/04/22 5:00 AM) 99.86 Deg F (03/04/22 12:00 AM) Peripheral Pulse Rate [60-100 bpm] 70 bpm (03/04/22 5:00 AM) 62 bpm (03/04/22 12:00 AM) 89 bpm (03/03/22 7:30 PM) Heart Rate Monitored [60-100 bpm] 65 bpm (03/04/22 7:35 AM) 67 bpm (03/03/22 6:35 AM) Respiratory Rate [12-24 br/min] 16 br/min (03/04/22 7:35 AM) 18 br/min (03/04/22 5:00 AM) 18 br/min (03/04/22 12:00 AM) Blood Pressure [90-140/60-90 mmHg] 145/86mmHg *HI* (03/04/22 7:35 AM) 140/74mmHg (03/04/22 5:00 AM) 145/91mmHg *HI* (03/04/22 12:00 AM) Mean Arterial Pressure, Cuff [65-140 mmHg] 106 mmHg (03/04/22 7:35 AM) 94 mmHg (03/03/22 4:00 PM) 101 mmHg (03/03/22 12:33 PM) Mean Arterial Pressure Cuff 98 mmHg (03/03/22 12:33 PM) 81 mmHg (03/03/22 11:38 AM) 89 mmHg (03/03/22 11:25 AM) Weight 73.000 kg (03/03/22 4:02 PM) 73.000 kg (03/03/22 3:57 PM) 73.000 kg (02/27/22 1:53 PM) Weight Dosing 73.000 kg (03/03/22 4:02 PM) 73.000 kg (03/03/22 3:57 PM) 73.000 kg (02/27/22 1:53 PM) Height 163.000 cm (03/03/22 4:02 PM) 163.000 cm (03/03/22 3:57 PM) 163.000 cm (02/27/22 1:53 PM) Height/Length Dosing 163.000 cm (03/03/22 4:02 PM) 163.000 cm (03/03/22 3:57 PM) 163.000 cm (02/27/22 1:53 PM) Body Mass Index 27.480 kg/m2 (03/03/22 4:02 PM) 27.480 kg/m2 (03/03/22 3:57 PM) Social History Social History Type Response Tobacco [...] Safety Implantable Status Assigning Authority Unknown Unknown [id number] Unknown 08/22/24 Unknown Unknown Active k [facility] Discharge Instructions Patient Education 03/04/2022 06:59:31 Vaginal Hysterectomy, Care After Vaginal Hysterectomy, Care After The following information offers guidance on how to care for yourself after your procedure. Your health care provider may also give you more specific instructions. If you have problems or questions, contact your health care provider. What can I expect after the procedure? After the procedure, it is common to have: ??? Pain in the lower abdomen and vagina. ??? Vaginal bleeding and discharge for up to 1 week. You will need to use a sanitary pad after thisprocedure. ??? Difficulty having a bowel movement (constipation). ??? Temporary problems emptying the bladder. ??? Tiredness (fatigue). ??? Poor appetite. ??? Less interest in sex. ??? Feelings of sadness or other emotions. If your ovaries were also removed, it is also common to have symptoms of menopause, such as hot flashes, night sweats, and lack of sleep (insomnia). Follow these instructions at home: Medicines ??? Take oasc-wyv-siiamzy and prescription medicines only as told by your health care provider. ??? Do not take aspirin or NSAIDs, such as ibuprofen. These medicines can cause bleeding. ??? Ask your health care provider if the medicine prescribed to you: ??? Requires you to avoid driving or using machinery. ??? Can cause constipation. You may need to take these actions to prevent or treat constipation: ??? Drink enough fluid to keep your urine pale yellow. ??? Take ooal-ekf-aqlnfdb or prescription medicines. ??? Eat foods that are high in fiber, such as beans, whole grains, and fresh fruits and vegetables. ??? Limit foods that are high in fat and processed sugars, such as fried or sweet foods. Activity ??? Rest as told by your health care provider. ??? Return to your normal activities as told by your health care provider. Ask your health care provider what activities are safe for you ??? Avoid sitting for a long time without moving. Get up to take short walks every 1-2 hours. This is important to improve blood flow and breathing. Ask for help if you feel weak or unsteady. ??? Try to have someone home with you for 1???2 weeks to help you with everyday chores. ??? Do not lift anything that is heavier than 10 lb (4.5 kg), or the limit that you are told, untilyour health care provider says that it is safe. ??? If you were given a sedative during the procedure, it can affect you for several hours. Do not drive or operate machinery until your health care provider says that it is safe. Lifestyle ??? Do not use any products that contain nicotine or tobacco. These products include cigarettes, chewing tobacco, and vaping devices, such as e-cigarettes. These can delay healing after surgery. If you need help quitting, ask your health care provider. ??? Do not drink alcohol until your health care provider approves. General instructions ??? Do not douche, use tampons, or have sex for at least 6 weeks, or as told by your health care provider. ??? If you struggle with physical or emotional changes after your procedure, speak with your healthcare provider or a therapist. ??? The stitches inside your vagina will dissolve over time and do not need to be taken out. ??? Do not take baths, swim, or use a hot tub until your health care provider approves. You may only be allowed to take showers for 2???3 weeks ??? Wear compression stockings as told by your health care provider. These stockings help to prevent blood clots and reduce swelling in your legs. ??? Keep all follow-up visits. This is important. Contact a health care provider if: ??? Your pain medicine is not helping. ??? You have a fever. ??? You have nausea or vomiting that does not go away. ??? You feel dizzy. ??? You have blood, pus, or a bad-smelling discharge from your vagina more than 1 week after the procedure. ??? You continue to have trouble urinating 3???5 days after the procedure. Get help right away if: ??? You have severe pain in your abdomen or back. ??? You faint. ??? You have heavy vaginal bleeding and blood clots, soaking through a sanitary pad in less than 1 hour. ??? You have chest pain or shortness of breath. ??? You have pain, swelling, or redness in your leg. These symptoms may represent a serious problem that is an emergency. Do not wait to see if the symptoms will go away. Get medical help right away. Call your local emergency services (911 in the [place] Do not drive yourself to the hospital. Summary ??? After the procedure, it is common to have pain, vaginal bleeding, constipation, temporary problems emptying your bladder, and feelings of sadness or other emotions. ??? Take mncy-tfm-ixirjpo and prescription medicines only as told by your health care provider. ??? Rest as told by your health care provider. Return to your normal activities as told by your health care provider. ??? Contact a health care provider if your pain medicine is not helping, or you have a fever, dizziness, or trouble urinating several days after the procedure. ??? Get help right away if you have severe pain in your abdomen or back, or if you faint, have heavy bleeding, or have chest pain or shortness of breath. This information is not intended to replace advice given to you by your health care provider. Make sure you discuss any questions you have with your health care provider. Document Revised: 12/13/2020 Document Reviewed: 12/13/2020 [employer] Patient Education ?? 2021 [employer]. Discharge instructions * Will Holly: PERFORM Event Display: Discharge Instructions Authored Date: [id number] BIGG SO :1960 Age:61 years Sex:Female Visit Date:03/03/2022 Post Acute Care Discharge Instructions Your Care Team Admitting Physician - Will Holly Attending Physician - Will Holly Your Diagnosis Status post vaginal hysterectomy Status post anterior colporrhaphy History of stress incontinence procedure using tension free vaginal tape Cystocele and rectocele with incomplete uterovaginal prolapse Stress incontinence of urine Tests Performed Automated Diff CBC w/ Diff COVID 19 (GeneXpert) This Is Your Medication List ???albuterol (ProAir HFA 90 mcg/inh inhalation aerosol)???aspirin (aspirin 81 mg oral delayed release tablet)???citalopram (citalopram 20 mg oral tablet)???ibuprofen (ibuprofen 600 mg oral tablet)???omeprazole (omeprazole 20 mg oral delayed release capsule)???oxyCODONE (oxyCODONE 5 mg oral capsule)? ??rosuvastatin (rosuvastatin 5 mg oral tablet) Procedures Performed ? ?Colporrhaphy A & P Repair (03/03/2022)? ?Hysterectomy Vaginal (03/03/2022)? ?Sling Vaginal (03/03/2022)???Aspiration of ectopic from cornu of fallopian tube???Cholecystectomy???Excision of bunion???LASIK Discharge Vitals Temperature??(Temporal Artery) 99.1 ??F (37.3 ??C) Heart Rate??(Monitored) 65 Respiratory Rate?? 16 Blood Pressure?? 145/86?? Height?? 64.17 in (163.000 cm) Weight?? 160.96 lb (73.000 kg) BMI?? 27.480 Discharge Disposition Name of Person Accompanying at Discharge - Advance Directive Advance Directive - No Advance Directive Additional Information - No Patient Post-Acute Discharge Location ?Patient Post-Acute Information ?? Patient Name:??BIGG SO ? Gender:??Female?:??56?Age:?61 Years ? No Post-Acute Placement(s) Listed ? No Post-Acute Service(s) Listed ?? What to do next Discharge Orders Discharge Activity Restrictions, Advance as tolerated Discharge Diet Instruction Discharge Disposition, 03/04/22 7:58:00 EST, Home Independently Scheduled Follow-Up Appointments Wednesday 8:30 AM EST ?? With: Will Holly Where: [facility] Women's Health Status: Confirmed Wednesday 9:15 AM EST ?? With: Will Holly Where: [facility] Women's Health Status: Confirmed Medications What How Much When Why Instructions Next Dose New ibuprofen (ibuprofen 600 mg oral tablet) 1 tab Oral (given by mouth) Every 6 hours as needed for as needed for pain Status post vaginal hysterectomy Pickup at [facility] New oxyCODONE (oxyCODONE 5 mg oral capsule) 1 Capsules Oral (given by mouth) Every 6 hours as needed for as needed for pain Status post vaginal hysterectomy Pickup at [facility] Unchanged albuterol (ProAir HFA 90 mcg/ inh inhalation aerosol) 1 Puffs Inhale (breathe in) Every 4 hours as needed for as needed for wheezing Unchanged aspirin (aspirin 81 mg oral delayed release tablet) 1 tab Every day 1 Unknown ?? Unchanged citalopram (citalopram 20 mg oral tablet) 1 tab Every day 1 Unknown ?? Unchanged omeprazole (omeprazole 20 mg oral delayed release capsule) 1 Capsules Oral (given by mouth) Every day Unchanged rosuvastatin (rosuvastatin 5 mg oral tablet) 1 tab Every day 1 Unknown ?? Pharmacy Information [facility]: [address] [place] [phone] Additional Information Lab Results Test Name Test Result Date/Time WBC 8.0 K/mcL 03/04/2022 06:21 EST RBC 3.41 Million/mcL 03/04/2022 06:21 EST Hgb 10.6 g/dL 03/04/2022 06:21 EST Hct 31.4 % 03/04/2022 06:21 EST MCV 92.1 fL 03/04/2022 06:21 EST MCH 31.1 pg 03/04/2022 06:21 EST MCHC 33.8 g/dL 03/04/2022 06:21 EST RDW-CV 12.9 % 03/04/2022 06:21 EST Platelets 251 K/mcL 03/04/2022 06:21 EST MPV 9.5 fL 03/04/2022 06:21 EST Neutro Auto 67.1 % 03/04/2022 06:21 EST Lymph Auto 23.2 % 03/04/2022 06:21 EST [place] Auto 8.1 % 03/04/2022 06:21 EST Eos, Auto 0.90 % 03/04/2022 06:21 EST Basophil Auto 0.6 % 03/04/2022 06:21 EST Imm Gran Auto 0.1 % 03/04/2022 06:21 EST Neutro Absolute 5.4 K/mcL 03/04/2022 06:21 EST Lymph Absolute 1.9 K/mcL 03/04/2022 06:21 EST [place] Absolute 0.6 K/mcL 03/04/2022 06:21 EST Eos Absolute 0.1 K/mcL 03/04/2022 06:21 EST Baso Absolute 0.0 K/mcL 03/04/2022 06:21 EST Imm Gran Absolute 0.01 03/04/2022 06:21 EST SARS-CoV-2 (COVID-19) PCR (GeneXpert) Neg-GeneXPert 03/03/2022 06:25 EST Employed in healthcare? No 03/03/2022 06:25 EST Symptomatic as defined by CDC? No 03/03/2022 06:25 EST Hospitalized due to COVID-19? No 03/03/2022 06:25 EST In ICU? No 03/03/2022 06:25 EST Group care resident? No 03/03/2022 06:25 EST status? Not 03/03/2022 06:25 EST Allergies Winchester nut??(Anaphylactic reaction) Problems Ongoing - Any problem that you are currently receiving treatment for. Asthma Cystocele and rectocele with incomplete uterovaginal prolapse GERD - Gastro-esophageal reflux disease HLD - Hyperlipidemia Joint pain PORTIA - Obstructive sleep apnea Restless legs syndrome Stress incontinence of urine Urge incontinence of urine Procedure History ? ?Colporrhaphy A & P Repair (03/03/2022)? ?Hysterectomy Vaginal (03/03/2022)? ?Sling Vaginal (03/03/2022)???Aspiration of ectopic from cornu of fallopian tube???Cholecystectomy???Excision of bunion???LASIK Social History Alcohol Current, 3-5 times per week Electronic Cigarette/Vaping Electronic Cigarette Use: Never. Substance Use Never Tobacco Former tobacco user Tobacco Use:. Stopped age 58 Years. Functional/Cognitive Assessment Assessment Outcome ADLs Independent Ambulation Assistance Independent Bed Mobility Assistance Independent Orientation Assessment Oriented x 4 Education Materials Vaginal Hysterectomy, Care After The following information offers guidance on how to care for yourself after your procedure. Your health care provider may also give you more specific instructions. If you have problems or questions, contact your health care provider. What can I expect after the procedure? After the procedure, it is common to have: ? Pain in the lower abdomen and vagina. ? Vaginal bleeding and discharge for up to 1 week. You will need to use a sanitary pad after this procedure. ? Difficulty having a bowel movement (constipation). ? Temporary problems emptying the bladder. ? Tiredness (fatigue). ? Poor appetite. ? Less interest in sex. ? Feelings of sadness or other emotions. If your ovaries were also removed, it is also common to have symptoms of menopause, such as hot flashes, night sweats, and lack of sleep (insomnia). Follow these instructions at home: Medicines ? Take pwoh-aqw-cevmrek and prescription medicines only as told by your health care provider. ? Do not take aspirin or NSAIDs, such as ibuprofen. These medicines can cause bleeding. ? Ask your health care provider if the medicine prescribed to you: ? Requires you to avoid driving or using machinery. ? Can cause constipation. You may need to take these actions to prevent or treat constipation: ? Drink enough fluid to keep your urine pale yellow. ? Take eqwk-eeb-jnvobph or prescription medicines. ? Eat foods that are high in fiber, such as beans, whole grains, and fresh fruits and vegetables. ? Limit foods that are high in fat and processed sugars, such as fried or sweet foods. Activity ? Rest as told by your health care provider. ? Return to your normal activities as told by your health care provider. Ask your health care provider what activities are safe for you ? Avoid sitting for a long time without moving. Get up to take short walks every 1-2 hours. This is important to improve blood flow and breathing. Ask for help if you feel weak or unsteady. ? Try to have someone home with you for 1???2 weeks to help you with everyday chores. ? Do not lift anything that is heavier than 10 lb (4.5 kg), or the limit that you are told, until your health care provider says that it is safe. ? If you were given a sedative during the procedure, it can affect you for several hours. Do not drive or operate machinery until your health care provider says that it is safe. Lifestyle ? Do not use any products that contain nicotine or tobacco. These products include cigarettes, chewing tobacco, and vaping devices, such as e-cigarettes. These can delay healing after surgery. If you need help quitting, ask your health care provider. ? Do not drink alcohol until your health care provider approves. General instructions ? Do not douche, use tampons, or have sex for at least 6 weeks, or as told by your health care provider. ? If you struggle with physical or emotional changes after your procedure, speak with your health care provider or a therapist. ? The stitches inside your vagina will dissolve over time and do not need to be taken out. ? Do not take baths, swim, or use a hot tub until your health care provider approves. You may only beallowed to take showers for 2???3 weeks ? Wear compression stockings as told by your health care provider. These stockings help to prevent blood clots and reduce swelling in your legs. ? Keep all follow-up visits. This is important. Contact a health care provider if: ? Your pain medicine is not helping. ? You have a fever. ? You have nausea or vomiting that does not go away. ? You feel dizzy. ? You have blood, pus, or a bad-smelling discharge from your vagina more than 1 week after the procedure. ? You continue to have trouble urinating 3???5 days after the procedure. Get help right away if: ? You have severe pain in your abdomen or back. ? You faint. ? You have heavy vaginal bleeding and blood clots, soaking through a sanitary pad in less than 1 hour. ? You have chest pain or shortness of breath. ? You have pain, swelling, or redness in your leg. These symptoms may represent a serious problem that is an emergency. Do not wait to see if the symptoms will go away. Get medical help right away. Call your local emergency services (911 in the [place] Do not drive yourself to the hospital. Summary ? After the procedure, it is common to have pain, vaginal bleeding, constipation, temporary problems emptying your bladder, and feelings of sadness or other emotions. ? Take yldr-jlx-efabjrr and prescription medicines only as told by your health care provider. ? Rest as told by your health care provider. Return to your normal activities as told by your health care provider. ? Contact a health care provider if your pain medicine is not helping, or you have a fever, dizziness, or trouble urinating several days after the procedure. ? Get help right away if you have severe pain in your abdomen or back, or if you faint, have heavy bleeding, or have chest pain or shortness of breath. This information is not intended to replace advice given to you by your health care provider. Make sure you discuss any questions you have with your health care provider. Document Revised: 12/13/2020 Document Reviewed: 12/13/2020 [employer] Patient Education ?? 2021 [employer] Common Emergency Awareness Tips IS IT A STROKE? Act FAST and Check for these signs: FACE Does the face look uneven? ARM Does one arm drift down? SPEECH Does their speech sound strange? TIME Call at any sign of stroke HEART ATTACK SIGNS Chest discomfort: Most heart attacks involve discomfort in the center of the chest and lasts more than a few minutes, or goes away and comes back. It can feel like uncomfortable pressure, squeezing, fullness or pain. Discomfort in upper body: Symptoms can include pain or discomfort in one or both arms, back, neck, jaw or stomach. Shortness of breath: With or without discomfort. Other signs: Breaking out in a cold sweat, nausea, or lightheaded. Remember, MINUTES DO MATTER. If you experience any of these heart attack warning signs, call to get immediate medical attention! Patient/Care Analyst Signature: Relationship to Patient: Patient Name: BIGG SO Witness Signature: Post Acute Certification I certify that this patient requires the following level of care for the diagnosis above: ?Skilled ?Intermediate ?M.R. ?Homecare ?Inpatient Rehabilitation ?Other: The H&P is current and has been updated within the last 5 days. I certify that all information contained is a true and accurate reflection of the individual's condition. Provider Signature: Electronically Signed on: 03/04/2022 08:10 ESTSigned by:ZAIDA * Event Display: Discharge Instructions History and physical note * Event Display: History and Physical Update * Event Display: History and Physical Discharge summary * Will Holly: PERFORM Event Display: Discharge Note Authored Date: [id number] BIGG SO :1960 Age:61 years Sex:Female Visit Date:03/03/2022 Admission Information Vaginal Hysterectomy,??Uterosacral Ligament??Suspension, Anterior and Posterior Colporrhaphy, and??TVT Vaginal Sling on 03/03/2022 Hospital Course POD#1 The patient is doing well??after surgery.?? She is ambulating well and tolerating regular??diet.?? Her pain is controlled with ibuprofen and oxycodone. ??The??vaginal packing was removed.?? The Foleycatheter was emptied and then her bladder was filled with??sterile??saline until urinary urgency achieved.?? 210??mL??was backfilled into the bladder. ??She was able to spontaneously void??the same volume. Physical Exam Vitals & Measurements T:??37.3?C ??(Temporal Artery)?? TMIN:??36.3?C ??(Temporal Artery)?? TMAX:??37.7?C ??(Temporal Artery)?? HR:??65??(Monitored)?? RR:??16?? BP:??145/86?? SpO2:??97%?? HT:??163.000??cm?? WT:??73.000??kg?? BMI:??27.480?? Pain Score:??4?? O2 Therapy:??Room air?? GENERAL: Cooperative, alert, no acute distress. HEART: Regular rate and rhythm without murmur. LUNGS: Clear to auscultation bilaterally, no wheeze, rales or rhonchi. ABDOMEN: Soft, non-tender, nondistended. Bowel sounds active throughout. Incisions: Intact, healing well.?? No signs of infection. EXTREMITIES: No edema or tenderness. NEURO: CN II-XII grossly intact. Vulva:Normal external female genitalia Vagina: No abnormal discharge or blood. ??Vaginal packing removed. Medications Inpatient acetaminophen, 650 mg= 2 tab, Oral, every 4 hr, PRN albuterol, 90 mcg= 1 puffs, Inhale, every 4 hr, PRN citalopram, 20 mg= 1 tab, Oral, Daily diphenhydrAMINE, 25 mg= 1 cap, Oral, every 6 hr, PRN diphenhydrAMINE, 25 mg= 0.5 mL, IV Push, every 6 hr, PRN docusate-senna 50 mg-8.6 mg oral tablet, 2 tab, Oral, BID ibuprofen, 600 mg= 1 tab, Oral, every 4 hr, PRN Lactated Ringers Injection 1,000 mL, 1000 mL, IV naloxone, 0.1 mg= 0.25 mL, IV Push, every 5 min, PRN Normal Saline Flush, 10 mL, IV Flush, As Directed, PRN ondansetron, 4 mg= 2 mL, IV Push, every 6 hr, PRN ondansetron, 4 mg= 1 tab, Oral, every 6 hr, PRN oxyCODONE, 5 mg= 1 tab, Oral, every 4 hr, PRN oxyCODONE, 10 mg= 2 tab, Oral, every 4 hr, PRN prochlorperazine, 10 mg= 2 tab, Oral, every 6 hr, PRN Protonix, 20 mg= 1 tab, Oral, Daily simethicone, 80 mg= 1 tab, Oral, every 1 hr while awake, PRN sodium chloride 0.9% flush, 10 mL, IV Flush, every 8 hr Home aspirin 81 mg oral delayed release tablet, 81 mg= 1 tab, Daily citalopram 20 mg oral tablet, 20 mg= 1 tab, Daily ibuprofen 600 mg oral tablet, 600 mg= 1 tab, Oral, every 6 hr, PRN omeprazole 20 mg oral delayed release capsule, 20 mg= 1 cap, Oral, Daily oxyCODONE 5 mg oral capsule, 5 mg= 1 cap, Oral, every 6 hr, PRN ProAir HFA 90 mcg/inh inhalation aerosol, 1 puffs, Inhale, every 4 hr, PRN rosuvastatin 5 mg oral tablet, 5 mg= 1 tab, Daily Procedure/Surgical History ? ?Colporrhaphy A & P Repair (03/03/2022)? ?Hysterectomy Vaginal (03/03/2022)? ?Sling Vaginal (03/03/2022)???Aspiration of ectopic from cornu of fallopian tube???Cholecystectomy???Excision of bunion???LASIK Social History Alcohol Current, 3-5 times per week Electronic Cigarette/Vaping Electronic Cigarette Use: Never. Substance Use Never Tobacco Former tobacco user Tobacco Use:. Stopped age 58 Years. Discharge Plan 1.??Status post vaginal hysterectomy??Z90.710 Ordered: ibuprofen 600 mg oral tablet, 600 mg = 1 tab, Oral, every 6 hr, PRN as needed for pain, # 30 tab, 0Refill(s), Pharmacy: [facility], 163, cm, 03/03/22 16:04:00 EST, Height/Length Dosing, 73, kg, 03/03/22 16:04:00 EST, Weight Dosing oxyCODONE 5 mg oral capsule, 5 mg = 1 cap, Oral, every 6 hr, PRN as needed for pain, # 8 cap, 0 Refill(s), Pharmacy: [facility], 163, cm, 03/03/22 16:04:00 EST, Height/Length Dosing, 73, kg, 03/03/22 16:04:00 EST, Weight Dosing ?? 2.??Status post anterior colporrhaphy??Z98.890,??History of stress incontinence procedure using tension free vaginal tape??Z98.890 ?? 4.??Cystocele and rectocele with incomplete uterovaginal prolapse??N81.2 ?? 5.??Stress incontinence of urine??N39.3 ?? All Diagnoses This Visit Status post vaginal hysterectomy Status post anterior colporrhaphy History of stress incontinence procedure using tension free vaginal tape Cystocele and rectocele with incomplete uterovaginal prolapse Stress incontinence of urine Patient Discharge Condition Good Discharge Disposition Discharge Home Patient Education Vaginal Hysterectomy, Care After Medication Reconciliation New Prescription ibuprofen (ibuprofen 600 mg oral tablet)1 tab Oral (given by mouth) every 6 hours as needed as needed for pain. Refills: 0. ?? oxyCODONE (oxyCODONE 5 mg oral capsule)1 Capsules Oral (given by mouth) every 6 hours as needed as needed for pain. Refills: 0. ?? Unchanged albuterol (ProAir HFA 90 mcg/inh inhalation aerosol)1 Puffs Inhale (breathe in) every 4 hours as needed as needed for wheezing. ?? aspirin (aspirin 81 mg oral delayed release tablet)1 tab every day. 1 Unknown. ?? citalopram (citalopram 20 mg oral tablet)1 tab every day. 1 Unknown. ?? omeprazole (omeprazole 20 mg oral delayed release capsule)1 Capsules Oral (given by mouth) every day. ?? rosuvastatin (rosuvastatin 5 mg oral tablet)1 tab every day. 1 Unknown. Electronically Signed on 03/04/22 08:09 AM Will Holly Patient Care team information Care Team Related Persons Name: DULCE SO Address: [address]
--- OUTSIDE RECORDS SUMMARY | 2023-04-16 00:58 | XMS_ITS | CCD ---
Author Name Unknown Address [address] [place] [phone] Organization Unknown Address [address] [place], [place] [id number] Care Team Providers Care Information Technology Administrator Name Role Phone SANA AGUILAR Attending Physician [phone] Vital Signs Unknown or Not Available. Allergies Unknown or Not Available. Procedures Unknown or Not Available. History of Immunizations Unknown or Not Available. Problems Unknown or Not Available. Results Unknown or Not Available. Active Medications Unknown or Not Available. Medications Administered During Visit Unknown or Not Available. Encounters Encounter Diagnosis Diagnosis Code Start Date Obstructive sleep apnea (adult) (pediatric) G473 3 08/25/2021 Social History Smoking Status Code Start Date End Date Former smoker [id number] Patient Decision Aids Unknown or Not Available. Discharge Instructions You were admitted to [facility] on 08/25/2021 18:15 with a principal diagnosis of Obstructive sleep apnea (adult) (pediatric) You were discharged from [facility] on 08/26/2021 05:54 Should you have any questions prior to [...]
--- OUTSIDE RECORDS SUMMARY | 2023-04-16 00:58 | XMS_ITS | Continuity of Care Document ---
Author Name Unknown Organization [facility] Address [address] [place] [address] Care Team Providers Care Public Health Professor Name Role Phone RAJ SIU Primary Care Physician Encounter [facility] NBR [id number] Date(s): 04/13/22 - 04/13/22 [facility] [address] [place], [place] [address] Encounter Diagnosis Postoperative visit(Discharge Diagnosis) - 04/13/22 Stress incontinence of urine(Discharge Diagnosis) - 04/13/22 Urge incontinence of urine(Discharge Diagnosis) - 04/13/22 Discharge Disposition: Home or Self Care Attending Physician: Will Holly Allergies, Adverse Reactions, Alerts Substance Reaction Severity Status [place] nut Anaphylactic reaction Severe Active Assessment and Plan Future Appointments Functional Status 04/13/22 Other exposure to Infectious Disease Non e [...] weekly, # 42.5 g, 0 Refill(s), Pharmacy: [facility], 163, cm, 03/03/22 16:04:00 EST, Height/Length [...] [Reference Range]: 1 Blood Pressure [90-140/60-90 mmHg] 118/8 4mmHg (04/13/22 9:05 AM) Weight 72.2 kg (04/13/22 9:05 AM) Weight Measured (lbs) 159.174 lb (04/13/22 9:05 AM) Social History Social History Type Response [...] Safety Implantable Status Assigning Authority Unknown Unknown [id number] Unknown 08/22/24 Unknown Unknown Active [facility] Discharge Instructions Follow Up Care 01/27/2022 18:31:51 With:Will Holly Address: [address] [place] [phone] When:Within 2 Week(s) Comments:Post operative appointment Physician Outpatient Note * Will Holly: PERFORM Event Display: Office Clinic Note Physician Authored Date: [id number] BIGG SO :1960 Age:62 years Sex:Female Visit Date:04/13/2022 Primary Care Physician: RAJ SIU Chief Complaint Postoperative appointment-6 weeks History of Present Illness 62yo Female, The patient is here today for??her 6??weeks Postoperative appointment. ??She had a Vaginal??Hysterectomy, Uterosacral Ligament Vaginal Suspension, TVT Vaginal Sling, and Anterior??/ Posterior??Colporrhaphy on 03/03/2022 due to Incomplete??Uterovaginal??Prolapse??with??Cystocele and??Rectocele and Stress??Urinary??Incontinence. ?? Pathology Report- inactive endometrium.?? Cervix,??myometrium, and serosa without pathologic abnormality. ?? Since her last appointment,??she has been doing well.?There is no??longer any pain.??She is able to urinate??without difficulty and is having normal bowel movements. ??Occasional??RICHARD??with sneezing, no??urinary urgency.?She??is extremely happy with her results, especially not feeling??prolapse. Physical Exam Vitals & Measurements BP:??118/84?? WT:??72.2??kg?? GENERAL: Cooperative, alert, no acute distress. HEENT: Head is normocephalic, atraumatic. PERRLA.?? HEART: Regular rate and rhythm without murmur. LUNGS: Clear to auscultation bilaterally, no wheeze, rales or rhonchi. ABDOMEN: Soft, non-tender, nondistended. Bowel sounds active throughout. Incisions: Intact, healing well.?? No signs of infection. EXTREMITIES: No edema or tenderness. NEURO: CN II-XII grossly intact. Vulva:Normal external female genitalia Vagina: Atrophic mucosa. ??Incisions intact, healing well. ??Some??suture material??at superior portion anterior vaginal??wall incision. ??No abnormal discharge or blood.?? Assessment/Plan 1.??Postoperative visit??Z48.89 2.??Stress incontinence of urine??N39.3 3.??Urge incontinence of urine??N39.41 Orders: estradiol 0.1 mg/g vaginal cream, See Instructions, 1 g VAG every night for 7 nights then twice weekly, # 42.5 g, 0 Refill(s), Pharmacy: [facility], 163, cm, 03/03/22 16:04:00 EST, Height/Length Dosing, 73, kg, 03/03/22 16:04:00 EST, Weight Dosing At today's appointment, we reviewed??her surgery and postoperative course.?? She is doing well??without any urinary or bowel??problems.?? Parts of??her??vaginal incisions have not completely??healed,and along with vaginal atrophy??recommended a course of??vaginal estradiol cream.?? Return in??2 to3 weeks??for follow-up. Follow Up Instructions With When Contact Information Will Holly In 2 weeks [address] [place] [address] Additional Instructions: Post operative appointment Problem List/Past Medical History Ongoing Asthma Cystocele [...] 25 mcg= 1 cap, Oral, BID Allergies [place] nut??(Anaphylactic reaction) Social History Alcohol Current, 3-5 times per week Electronic Cigarette/Vaping Electronic Cigarette Use: Never. 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 Highest education level: University degree(s). Home/Environment Lives with Spouse. Living situation: Home/Independent. Substance Use Never Tobacco Former tobacco user Tobacco Use:. Stopped age 58 Years. Never Smokeless Tobacco use:. Electronically Signed on 04/13/22 09:42 AM Will Holly Patient Care team information Personnel Name: RAJ SIU Address: Address: [address] [place] [id number] [place] [address]
--- OUTSIDE RECORDS SUMMARY | 2023-04-16 00:58 | XMS_ITS | Continuity of Care Document ---
Author Name Unknown Organization [facility] Address [address] [place] [address] Care Team Providers Care Industrial Renderer Name Role Phone RAJ SIU Primary Care Physician [phone] Encounter [facility] NBR [id number] Date(s): 07/02/22 - 07/02/22 [facility] [address] [place], [place] [address] Encounter Diagnosis Dysuria(Discharge Diagnosis) - 07/02/22 Vaginal pain(Discharge Diagnosis) - 07/02/22 Hematuria(Discharge Diagnosis) - 07/02/22 Discharge Disposition: Home or Self Care Attending Physician: Will Holly Allergies, Adverse Reactions, Alerts Substance Reaction Severity Status [place] nut Anaphylactic reaction Severe Active Assessment and Plan Future Appointments Future Scheduled Tests Laboratory* Urine Culture 06/30/22 Functional Status 07/02/22 Other exposure to Infectious Disease Non e [...] weekly, # 42.5 g, 0 Refill(s), Pharmacy: [facility], 163, cm, 03/03/22 16:04:00 EST, Height/Length [...] Hyperlipidemia Confirmed Active Joint pain Confirmed Active POTRIA - Obstructive sleep apnea 1 Confirmed Active [...] [Reference Range]: 1 Blood Pressure [90-140/60-90 mmHg] 162/9 0mmHg *HI* (07/02/22 8:59 AM) Weight 71.8 kg (07/02/22 8:59 AM) Weight Measured (lbs) 158.292 lb (07/02/22 8:59 AM) [place] Body Weight Calculated 54.7 kg (07/02/22 8:59 AM) Height 162.56 cm (07/02/22 8:59 AM) Height/Length Measured (inches) 64 inch (07/02/22 8:59 AM) BSA Measured 1.8 m2 (07/02/22 8:59 AM) Body Mass Index 27.17 kg/m2 (07/02/22 8:59 AM) Social History Social History Type Response [...] Safety Implantable Status Assigning Authority Unknown Unknown [id number] Unknown 08/22/24 Unknown Unknown Active Unk nown Physician Outpatient Note * Will Holly: PERFORM Event Display: Office Clinic Note Physician Authored Date: [id number] BIGG SO :1960 Age:62 years Sex:Female Visit Date:07/02/2022 Primary Care Physician: RAJ SIU Chief Complaint ? UTI, cramping, has a pulling sensation, left posterior vaginal scratching area, warmth in vaginalarea History of Present Illness 62yo Female, The patient is here today??due to vaginal??discomfort and lower pelvic pain.?? She??has been doing well since her??last postoperative appointment in April.?? 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 It was particularly busy last week but she??has been feeling??well.?? She??rested at home over the weekend and then began having pain??2 days ago. ??She feels cramping??and a pulling sensation in her??vagina and lower pelvis.?? There is no urinary frequency or??pain with urination.?? Urinary function is good and there are no problems with bowel movements. ??There are rare occasions of??stress incontinence.?? Things are much improved??since before her surgery. She had a Vaginal??Hysterectomy, Uterosacral Ligament Vaginal Suspension, TVT Vaginal Sling, and Anterior??/ Posterior??Colporrhaphy on 03/03/2022 due to Incomplete??Uterovaginal??Prolapse??with??Cystocele and??Rectocele and Stress??Urinary??Incontinence.?? Surgery, she??uses??the vaginal??estradiol creaminfrequently. Review of Systems Constitutional: No fevers, chills, sweats, no weight loss, no weight gain Eye: No new visual problems Respiratory: No shortness of breath, cough Cardiovascular: No chest pain, palpitations, syncope Gastrointestinal: No nausea, vomiting, diarrhea Genitourinary: No blood in urine, no urinary urgency, frequency, no painful urination, no difficulty urinating??very incontinence [employer]: Vaginal pain, lower pelvic pain. ??No unexpected vaginal bleeding, odor, discharge Heme/Lymph: Negative for bruising tendency, swollen lymph glands Endocrine: Negative for cold intolerance, new unexpected hair growth Skin: No bruises, abrasions Psychiatric: No anxiety, depression Physical Exam Vitals & Measurements BP:??162/90?? HT:??162.56??cm?? WT:??71.8??kg?? BMI:??27.17?? BSA:??1.8?? General: Alert and oriented, well nourished, no acute distress Eye: Pupils equal, EOMI HEENT: Normocephalic, grossly normal hearing, moist oral mucosa, no scleral icterus Lungs: Clear to auscultation, non-labored respiration Heart: Normal rate, regular rhythm, no murmurs Abdomen: Soft, non-tender, non-distended,??no masses Musculoskeletal: Grossly normal range of motion and strength, no tenderness or swelling Skin: Skin is warm, dry, no rashes Neurologic: Awake, alert, and oriented X4 Psychiatric: Cooperative, appropriate mood and affect ?? Vulva: Normal external female genitalia Bladder: Urethra normal, no bladder prolapse Vagina: Normal pink rugated mucosa. Good??support of vaginal??apex,??anterior and posterior compartments. ??No visible suture material or??graft erosion from TVT. Assessment/Plan 1.??Dysuria??R30.0 Ordered: Urine Culture, Urine, Clean Catch, Routine collect, RT - Routine, 07/02/22 10:12:00 EST, Once, Nurse collect, Dysuria Hematuria Urine Dipstick Clinic POC (RE), 07/02/22 9:20:00 EST, Dysuria, 07/02/22 9:20:00 EST ?? 2.??Vaginal pain??R10.2 ?? 3.??Hematuria??R31.9 Ordered: Urine Culture, Urine, Clean Catch, Routine collect, RT - Routine, 07/02/22 10:12:00 EST, Once, Nurse collect, Dysuria Hematuria ?? At today's appointment, we reviewed her symptoms and the findings on??exam.?? She has healed well from her surgery and there is good support??of her??bladder and vaginal apex.?? There are no??signs of infection??or mesh erosion.?? At the introitus on the side, and to a lesser extent??on the??left side, there is??scar tissue??tender??to palpation.?? I recommended that she??use topical estrogen daily for the next??4 to 5 days, then twice weekly. ??She may??put a small??amount on her finger and apply it directly to the sensitive areas. Problem List/Past Medical History Ongoing Asthma Cystocele [...] 25 mcg= 1 cap, Oral, BID Allergies [place] nut??(Anaphylactic reaction) Social History Alcohol Current, 3-5 times per week Electronic Cigarette/Vaping Electronic Cigarette Use: Never. 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 Highest education level: University degree(s). Home/Environment Lives with Spouse. Living situation: Home/Independent. Substance Use Never Tobacco Former tobacco user Tobacco Use:. Stopped age 58 Years. Never Smokeless Tobacco use:. Electronically Signed on 07/02/22 11:10 AM Will Holly Patient Care team information Care Team Personnel Name: RAJ SIU Position: No Access Member Role: Primary Care Physician Address: Address: [address] [place] [address] Care Team Related Persons Name: DULCE SO Address: Home [address] [place] [address] [facility] Name: DULCE SO Address: Home [address] [place], [place] [id number] [facility]
== END ==
PROVIDERS: PCP Physician Assistant Medical; Visit Provider Physician Assistant Medical
DX: Z12.31 Encounter for screening mammogram for malignant neoplasm of breast (principal)
CPT/HCPCS: 77063; 77067

== ENCOUNTER 2024-04-20 00:01 | Outpatient (CLI) | payer MEDICARE, OTHER, SELFPAY ==
--- OUTSIDE RECORDS SUMMARY | 2024-04-20 00:02 | XMS_ITS | Continuity of Care Document ---
Author Organization [facility] Address [address] [place] [address] Care Team Providers Care Tobacco Classer Name Role Phone Barbie Bonilla Primary Care Physician [facility] 04/20/23 - 04/20/[address] [phone] Encounter Diagnosis Screening for diabetes mellitus(Discharge Diagnosis) - 04/20/23 Adult general medical exam(Discharge Diagnosis) - 04/20/23 Discharge Disposition: Home or Self Care Attending Physician: Barbie Bonilla PA-C Admitting Physician: Barbie Bonilla PA-C Referring Physician: Barbie Bonilla PA-C Allergies, Adverse Reactions, Alerts Substance Reaction Severity [...] inactivated 01/24/10 Dre rded tetanus/diphth/pertuss (Tdap) adult/adol 4/1/06 Recorded varicella virus vaccine 04/26/00 Recorded hepatitis A adult vaccine 04/26/00 Recorded measles/mumps/rubella virus vaccine 04/26/00 Recor ded 1Result Comment: pt. tolerated vaccine well Medications citalopram 20 mg oral tablet See Instructions, TAKE ONE TABLET BY MOUTH EVERY DAY, # 90 tab, 3 Refill(s), Pharmacy: [email or web address] Start Date: 06/03/22 Status: Ordered EpiPen 2-Reji 0.3 mg injectable kit 0.3 mg =, IM, Once, # 2 EA, 0 Refill(s), Pharmacy: [email or web address] Start Date: 12/17/22 Status: Ordered omeprazole 20 mg oral delayed release capsule See Instructions, TAKE ONE CAPSULE BY MOUTH EVERY DAY, # 90 cap, 3 Refill(s), Pharmacy: [email or web address] Start Date: 06/03/22 Status: Ordered rosuvastatin 5 mg oral tablet See Instructions, TAKE ONE TABLET BY MOUTH EVERY DAY FOR 90 DAYS, # 90 tab, 3 Refill(s), Pharmacy: [email or web address] Start Date: 03/02/22 Status: Ordered Problem [...] 1PAP w/ HPV testing Negative for HPV 2019 2Left foot 3bilateral eye surg. Results Laboratory List Name Date Comprehensive Metabolic Panel (CMP) 03/27 10/16 Lipid Panel 04/20/23 Most recent to oldest [Reference Range]: 1 BUN [7-18 mg/dL] 10 mg/dL (04/20/23 9:17 AM) Cholesterol Total [50-200 mg/dL] 199 mg/ dL (04/20/23:17 AM) LDL [0-130 mg/dL] 127 mg/dL (04/20/23: AM) Glucose Level [74-106 mg/dL] 97 mg/dL (04/20/23: AM) Potassium Level [3.5-5.1 mmol/L] 4.1 mmo l/L (04/20/23 AM) HDL [40-60 mg/dL] 46 mg/dL (04/20/23: AM) AST [15-37 unit/L] 18 unit/L (04/20/23: AM) ALT [14-59 unit/L] 27 unit/L (04/20/23 AM) Sodium Level [136-145 mmol/L] 138 mmol/L (04/20/23: AM) Triglycerides [0-150 mg/dL] 129 mg/dL (04/20/23 AM) Calcium Level [8.5-10.1 mg/dL] 9.1 mg/dL (04/20/23: AM) Albumin Level [3.4-5.0 g/dL] 3.6 g/dL (04/20/23: AM) Protein Total [6.4-8.2 g/dL] 7.5 g/dL (04/20/23: AM) Bilirubin Total [0.2-1.0 mg/dL] 0.4 mg/d L (04/20/23 AM) Alk Phos [46-146 unit/L] 60 unit/L (04/20/23: AM) CO2 [21-32 mmol/L] 27 mmol/L (04/20/23:17 AM) eGFR Non-AA [>=60] 96 (04/20/23:17 AM) eGFR AA [>=60] 96 (04/20/23:17 AM) Chloride Level [98-107 mmol/L] 101 mmol/ L (04/20/23:17 AM) Creatinine Level [0.55-1.02 mg/dL] 0.70 mg/dL (12/26/23 9:17 AM) Social History Social History Type Response Tobacco Former tobacco user Tobacco Use:. 1 Sex Female 89, a few cigarettes/day. quit 1987 Patient Care team information Care Team Personnel Name: Barbie Bonilla PA-C Position: Physician Member Role: Primary Care Physician Address: Address: [address] [place] [phone]
--- OUTSIDE RECORDS SUMMARY | 2024-04-20 00:02 | XMS_ITS | Continuity of Care Document ---
Author Organization [facility] Address [address] [place] [address] Care Team Providers Care Jewel Inserter Name Role Phone Barbie Bonilla Primary Care Physician [phone] [facility] Date[facility]s): 10/07/23 - 10/07/[address] [address] [place] Encounter Diagnosis Estrogen deficiency(Discharge Diagnosis) - 10/07/23 Menopausal and postmenopausal disorder(Discharge Diagnosis) - 10/07/23 Discharge Disposition: Home or Self Care Attending Physician: Barbie Bonilla PA-C Admitting Physician: Barbie Bonilla PA-C Referring Physician: Barbie Bonilla PA-C Allergies, Adverse Reactions, Alerts Substance Reaction Severity Status BRAZIL NUT Anaphylactic reaction Unknown Active atorvastatin Muscle pain Unknown Active Immunizations Given and Recorded Vaccine Date Status [...] well Medications citalopram 20 mg oral tablet 1 tab, Oral, Daily, # 90 tab, 3 Refill(s), [facility]acy: [facility], 157.46, cm, 03/31/23 8:13:00 EST, Height, 70.05, kg, 03/31/23 8:02:00 EST, Weight Dosing Start Date: 06/28/23 Status: Ordered EpiPen 2-Reji 0.3 mg injectable kit 0.3 mg =, IM, Once, # 2 EA, 0 Refill(s), Pharmacy: [facility] Start Date: 12/17/22 Status: Ordered omeprazole 20 mg oral delayed release capsule 1 cap, Oral, Daily, # 90 cap, 3 Refill(s), Pharmacy: [facility], 157.46, cm, 03/31/23 8:13:00 EST, Height, 70.05, kg, 03/31/23 8:02:00 EST, Weight Dosing Start Date: 06/28/23 Status: Ordered rosuvastatin 5 mg oral tablet 1 tab, Oral, Daily, # 90 tab, 3 Refill(s), Pharmacy: [facility], 157.46, cm, 03/31/23 8:13:00 EST, Height, 70.05, kg, 03/31/23 8:02:00 EST, Weight Dosing Start Date: 06/14/23 Stop Date: 09/12/23 Status: Ordered Problem List Condition Confirmation Course Effective Dates Status H ealth Status Informant Allergy to nut Confirmed Active Depressive disorder Confirmed 05/20/21 Active Gastroesophageal reflux disease Confirmed 11/16/19 Active Hyperlipidemia Confirmed Active Obstructive sleep apnea syndrome Confirmed Active Procedures Procedure Date Related Diagnosis Body Site Status Hysterectomy 03/03/22 Completed Pap smear and HPV 1 05/22/18 Compl eted Cholecystectomy 04/25/01 Completed Bunionectomy 2 04/25/99 Completed Eye procedure 3 04/25/97 Completed 1PAP w/ HPV testing Negative for HPV 2019 2Left foot 3bilateral eye surg. Social History Social History Type Response Tobacco Former tobacco user Tobacco Use:. 1 Sex Female [birth year], a few cigarettes/day. quit 1987 Patient Care team information Care Team Personnel Name: Barbie Bonilla PA-C Position: Physician Member Role: Primary Care Physician Address: Address: [address] [place] [address] [address] [place], [place] [address]
--- OUTSIDE RECORDS SUMMARY | 2024-04-20 00:02 | XMS_ITS ---
Author Organization Unknown Address [address] [place] [phone] Phone Care Team Providers Care Early Childhood Coordinator Name Role Phone MADYSON Rivas Attending Unavailable SALBADOR Shaikh Primary Unavailable Social History Type Status Start Date End Date Code Code Syst em Smoking History Former smoker [id number] SNOMED CT Sex Female Hospital Discharge Instructions Should you have any questions prior to discharge, please contact a member of your healthcare team. If you have left the hospital and have any questions, please contact your primary care physician. Reason For Referral No Data Found Plan of Treatment Exposure 01/24/2020 BONE DENSITY DEXA SPINE & HIP 4 PSG NIGHT 08/25/2021 Encounters Encounter Diagnosis Start Date Code Code Sys tem Obstructive sleep apnea (adult) (pediatric) 04/23/2021 SNOMED-CT Personal Care Team Section Performer Name Performer Role Active Date Inactive Da te
--- OUTSIDE RECORDS SUMMARY | 2024-04-20 00:02 | XMS_ITS ---
Author Organization Unknown Address [address], [place] [phone] Phone Care Team Providers Care Impact Retail Service Merchandiser Name Role Phone LAUREN MARCUS Attending Unavail able SALBADOR Shaikh Primary Unavailable Social History Type Status Start Date End Date Code Code Syst em Smoking History Former smoker 9680918 SNOMED CT Sex Female Hospital Discharge Instructions [...] Sys tem Obstructive sleep apnea (adult) (pediatric) 08/25/2021 SNOMED-CT Personal Care Team Section Performer Name Performer Role Active Date Inactive Da te
--- OUTSIDE RECORDS SUMMARY | 2024-04-20 00:03 | XMS_ITS ---
Author Organization Unknown Address [address] [place] [phone] Phone Care Team Providers Care Gas Producer Name Role Phone MADYSON Rivas Attending Unavailable SALBADOR Shaikh Primary Unavailable Social History Type Status Start Date End Date Code Code Syst em Smoking History Former smoker [id number] SNOMED CT Sex Female Hospital Discharge Instructions [...] Sys tem Obstructive sleep apnea (adult) (pediatric) 09/10/2021 SNOMED-CT Personal Care Team Section Performer Name Performer Role Active Date Inactive Da te
--- OUTSIDE RECORDS SUMMARY | 2024-04-20 00:03 | XMS_ITS ---
Author Organization Unknown Address [address] [place] [phone] Phone Care Team Providers Care Executive Vp Name Role Phone HEATHER Dale Attending Unavailable SALBADOR Shaikh Primary Unavailable Results [facility]* - [place]icks[place] ect Date/Time: 09/02/2021 11:25 [facility] ID: [id number] [address] [place] [address], [phone] LOINC: 06746-3 Test Value Unit Reference Range Code Code System Flag Tier- RANDOM STAFF 68736-3 LOINC SARS COV2 RNA: NEGATIVE REFERENCE RAN GE: NEGAT 80935-6 LOINC Social History Type Status Start Date End Date Code Code Syst em Smoking History Former smoker 9018179 SNOMED CT Sex Female Hospital Discharge Instructions [...] Diagnosis Start Date Code Code Sys tem Exposure to SARS-CoV-2 09/02/2021 682340997 SNOME D-CT Personal Care Team Section Performer Name Performer Role Active Date Inactive Da te
--- OUTSIDE RECORDS SUMMARY | 2024-04-20 00:03 | XMS_ITS ---
Author Organization Unknown Address [address] [place] [phone] Phone Care Team Providers Care Project Engineer Chemicals Name Role Phone DAMIÁN Kelley Attending Unavailable SALBADOR Shaikh Primary Unavailable Results CULT URINE CULTURE* - Collec t Date/Time: 10/21/2021 12:16 [facility] ID: [id number] [address] [place] [address], [phone] LOINC: 630-4 Test Value Unit Reference Range Code Code System Flag COLLECTION MODE: CLEAN CATCH 16743-7 LOINC URINALYSIS CHEMICAL* - Colle ct Date/Time: 10/21/2021 12:16 [facility] ID: [id number] [address] [place] [address], [phone] LOINC: 03128-7 Test Value Unit Reference Range Code Code System Flag COLLECTION MODE: CLEAN CATCH 74832-8 LOINC Color YELLOW yellow 5778-6 LOINC Appearance CLEAR clear 5767-9 LOINC Glucose urine NEGATIVE negative mg/dl 96184-6 LOINC Bilirubin NEGATIVE negative 5770-3 LOINC Ketones NEGATIVE negative mg/dl 2514-8 LOINC Spec gravity 1.020 1.003 - 1.030 5811-5 LOINC pH urine 6.0 5.0 - 7.0 2756-5 LOINC Protein NEGATIVE negative mg/dl 09660-7 LOINC Urobilinogen 0.2 <or= 1 EU/dl 62983-6 LOINC Nitrite NEGATIVE negative 5802-4 LOINC Blood LARGE negative 5794-3 LOINC A Leukocytes NEGATIVE negative 62689-3 LOINC Social History Type Status Start Date End Date Code Code Syst em Smoking History Former smoker 5688533 SNOMED CT Sex Female Hospital Discharge Instructions [...] Diagnosis Start Date Code Code Sys tem Genitourinary symptoms 10/21/2021 681368477 SNOME D-CT Personal Care Team Section Performer Name Performer Role Active Date Inactive Da te
--- OUTSIDE RECORDS SUMMARY | 2024-04-20 00:03 | XMS_ITS ---
Author Organization Unknown Address [address] [place] [phone] Phone Care Team Providers Care Wire Turning Machine Operator Name Role Phone MADYSON Rivas Attending Unavailable SALBADOR Shaikh Primary Unavailable Results [facility] [place] ect Date/Time: 05/11/2022 12:55 [facility] ID: [id number] [address] [place] [address], [phone] LOINC: 51041-4 Test Value Unit Reference Range Code Code System Flag Tier- STAFF PRIORITY 07760-5 LOINC SARS COV2 RNA: NEGATIVE REFERENCE RAN GE: NEGAT 04947-0 LOINC Social History Type Status Start Date End Date Code Code Syst em Smoking History Former smoker 5812685 SNOMED CT Sex Female Hospital Discharge Instructions [...] Code Code Sys tem Exposure to SARS-CoV-2 05/11/2022 [id number] SNOME D-CT Personal Care Team Section Performer Name Performer Role Active Date Inactive Da te
--- OUTSIDE RECORDS SUMMARY | 2024-04-20 00:04 | XMS_ITS ---
Author Organization Unknown Address [address] [place] [phone] Phone Care Team Providers Care Electrician Crane Maintenance Name Role Phone IVANA Estevez Attending Unavailable SALBADOR Shaikh Primary Unavailable Results CULT URINE CULTURE* - Colle t Date/Time: 06/30/2022 12:12 [facility] ID: [id number] [address] [place] [address], [phone] LOINC: 630-4 Test Value Unit Reference Range Code Code System Flag COLLECTION MODE: CLEAN CATCH 71882-7 LOINC Social History Type Status Start Date End Date Code Code Syst em Smoking History Former smoker 0420138 SNOMED CT Sex Female Hospital Discharge Instructions [...] Diagnosis Start Date Code Code Sys tem Dysuria 06/30/2022 SNOMED-CT Personal Care Team Section Performer Name Performer Role Active Date Inactive Da te
--- OUTSIDE RECORDS SUMMARY | 2024-04-20 00:04 | XMS_ITS ---
Author Organization Unknown Address [address] [place] [address] [phone] Phone Care Team Providers Care Slag Expander Name Role Phone ARY WALLER Attending Unavailable SALBADOR Shaikh JR, Primary Unavaila ble Social History Type Status Start Date End Date Code Code Syst em Smoking History Former smoker 8748546 SNOMED CT Sex Female Hospital Discharge Instructions [...] Sys tem Obstructive sleep apnea (adult) (pediatric) 11/28/2020 SNOMED-CT Personal Care Team Section Performer Name Performer Role Active Date Inactive Da te
--- OUTSIDE RECORDS SUMMARY | 2024-04-20 00:05 | XMS_ITS | Referral Summary ---
Author Organization [facility] Address [address] [place] [address] Care Team Providers Care Manager Car Name Role Phone Unknown, Provider Primary Care Provider Unava ilable Social History Tobacco Use Types Packs/Day Years Used Date Smoking Tobacco: Never Assessed Comments Unknown Sex and Gender Information Value Date Recorded Sex Assigned at Not on file Legal Sex Female 18:12 EST Gender Identity Not on file Sexual Orientation Not on file Plan of Treatment Not on file Insurance [employer] T[employer] Care Teams Manager Car Relationship Specialty Start Date End Date Unknown, Provider, PCP - General 05/17/18
--- OUTSIDE RECORDS SUMMARY | 2024-04-20 00:05 | XMS_ITS | Encounter Summary ---
Author Organization [facility] Address [facility] [place] [address] Care Team Providers Care College Counselor Name Role Phone Pete Faye MD Primary Care Provider Unavaila ble Encounter Details Date Type Department Care Team (Late st Contact Info) Description 09/02/2012 - 09/02/2012 11:59 PM EDT Hospital Encounter Radiology Library at [facility] [place] [address] [address] Marge Temporary Screening Discharge Disposition: Home Social History Tobacco Use Types Packs/Day Years Used Date Smoking Tobacco: Never Assessed Sex and Gender Information Value Date Recorded Sex Assigned at Not on file Gender Identity Not on file Sexual Orientation Not on file documented as of this encounter Plan of Treatment Not on file documented as of this encounter Procedures Procedure Name Priority Date/Time Associated Diagnosis Comments FILM LIBRARY STORAGE ONLY MAMMO Routine 09/02/2012 12:00 AM EDT Screening documented in this encounter Results * Film Library- Storage only Mammo (09/02/2012 12:00 AM EDT) Narrative [facility] - 07/30/2015 10:59 AM EDT See PACS for result report. Dr Leann Bird IMG FILM LIBRARY ORD ERABLES [place], [place] documented in this encounter Visit Diagnoses Diagnosis Screening Screening for unspecified condition documented in this encounter Care Teams College Counselor Relationship Specialty Start Date End Date Pete Faye MD PCP - General 03/18/10 documented as of this encounter
--- OUTSIDE RECORDS SUMMARY | 2024-04-20 00:05 | XMS_ITS | Encounter Summary ---
Author Organization [facility] [address] [place] [address] Care Team Providers Care K 12 Principal Name Role Phone Pete Faye MD Primary Care Provider Unavaila ble Encounter Details Date Type Department Care Team (Late st Contact Info) Description 02/26/2014 - 02/26/2014 11:59 PM EST Hospital Encounter Radiology Library at [place] [address] Dr Marge Temporary Screening Discharge Disposition: Home [...] Comments FILM LIBRARY STORAGE ONLY MAMMO Routine 02/26/2014 12:00 AM EST Screening documented in this encounter Results * Film Library- Storage only Mammo (02/26/2014 12:00 AM EST) Narrative [facility] - 07/30/2015 10:59 AM EDT See PACS for result report. Dr Leann Bird IMG FILM LIBRARY ORD ERABLES [place], [place] documented in this encounter Visit Diagnoses Diagnosis Screening Screening for unspecified condition documented in this encounter Care Teams K 12 Principal Relationship Specialty Start Date End Date Pete Faye MD PCP - General 03/18/10 documented as of this encounter
--- OUTSIDE RECORDS SUMMARY | 2024-04-20 00:05 | XMS_ITS | Encounter Summary ---
Author Organization [facility] Address [address] [place] [address] Care Team Providers Care College Of Education Dean Name Role Phone Unavailable Primary Care Provider Unavailabl e Encounter Details Date Type Department Care Team (Late st Contact Info) Description 02/12/2000 Results Only [facility] conversion [address] [place] [address] Winifred Diego, DEACON Social History Tobacco Use Types Packs/Day Years [...] Procedure Name Priority Date/Time Associated Diagnosis Comments CYTOPATHOLOGY Routine 02/12/2000 0:00 EDT documented in this encounter Results * CYTOPATHOLOGY (02/12/2000 0:00 EDT) Pathology Report: CYTOPATHOLOGY REPORT Reports generated via electronic interface contain original data; however they are lacking the format of the original report. Caution should be taken when reading/interpreti ng unformatted reports. Name: ? BIGG FIGUEROA ? Accession #: ? [id number] : ? 1960 (Age: 39) ??F ?Collect Date: ? 02/12/2000 Location: ? [facility] ? Receive Date: ? 02/16/2000 Provider: ?WINIFRED DIEGO POINTER HELPER Copy to: ? Specimen/Source: ?ThinPrep Pap Test, Cervix/Endocervix Last Menstrual Period: ? 02/06/00 Previous Gynecologic Pathology: ? Yes: Atypical ? SPECIMEN ADEQUACY ? Satisfactory for evaluation. GENERAL CATEGORIZATION ? Within Normal Limits ? Document reviewed and electronically signed by: ? TRIPP Shah(ASCP) ? Report Date: ??02/24/2000 11:21 End of Report ASHLEY BARILLAS 02/12/2000 02/16/2000 us Winifred Diego NP PATHOLOGY ORDERABLES Final Re sult ASHLEY BARILLAS [address] [place] [address] documented in this encounter Visit Diagnoses Not on filedocumented in this encounter
--- OUTSIDE RECORDS SUMMARY | 2024-04-20 00:05 | XMS_ITS | Encounter Summary ---
Author Organization [facility] Address [address] [place] [address] Care Team Providers Care Specification Manager Name Role Phone Unavailable Primary Care Provider Unavailabl e Encounter Details Date Type Department Care Team (Late st Contact Info) Description 02/07/2004 Results Only [facility] conversion [address] [place] [address] Barbie Stafford, [facility] [address] [place] [address] [place] [address] Social History Tobacco Use Types Packs/Day Years [...] Priority Date/Time Associated Diagnosis Comments CYTOPATHOLOGY Routine 02/07/2004 0:00 EDT documented in this encounter Results * CYTOPATHOLOGY (02/07/2004 0:00 EDT) Pathology Report: CYTOPATHOLOGY REPORT Reports generated via electronic interface contain original data; however they are lacking the format of the original report. Caution should be taken when reading/interpreti ng unformatted reports. Name: ? BIGG FIGUEROA ? Accession #: ? [id number] : ? 1960 (Age: 43) ??F ?Collect Date: ? 02/07/2004 Location: ? [facility] ? Receive Date: ? 02/08/2004 Provider: ?BARBIE STAFFORD DIGITAL TRAFFIC COORDINATOR Copy to: ? Specimen/Source: ?ThinPrep Pap Test, Cervix/Endocervix Last Menstrual Period: ? 01/25/04 Other: ? HPVA - HPV testing requested if ASC-US on the current ThinPrep Pap test. ? SPECIMEN ADEQUACY ? Satisfactory for Evaluation - transformation zone component present GENERAL CATEGORIZATION ? Negative for Intraepithelial Lesion or Malignancy ? Document reviewed and electronically signed by: ? Iman Huber, SCT(ASCP) ? Report Date: ??02/14/2004 10:59 End of Report ASHLEY BARILLAS 02/07/2004 02/08/2004 us Barbie Stafford DIGITAL TRAFFIC COORDINATOR PATHOLOGY ORDERABLES Final R esult ASHLEY BARILLAS [address] [place] [address] documented in this encounter Visit Diagnoses Not on filedocumented in this encounter
--- OUTSIDE RECORDS SUMMARY | 2024-04-20 00:05 | XMS_ITS | Encounter Summary ---
Author Organization [facility] Address [facility] [place] [address] Care Team Providers Care Room Service Clerk Name Role Phone Pete Faye MD Primary Care Provider Unavaila ble Encounter Details Date Type Department Care Team (Late st Contact Info) Description 08/25/2010 - 08/25/2010 11:59 PM EDT Hospital Encounter Radiology Library [place] [facility] [place] [address] Dr Marge Temporary Screening Discharge Disposition: Home [...] Comments FILM LIBRARY STORAGE ONLY MAMMO Routine 08/25/2010 12:00 AM EDT Screening documented in this encounter Results * Film Library- Storage only Mammo (08/25/2010 12:00 AM EDT) Narrative [facility] - 07/30/2015 10:58 AM EDT See PACS for result report. Dr Leann Bird IMG FILM LIBRARY ORD ERABLES [place], [place] documented in this encounter Visit Diagnoses Diagnosis Screening Screening for unspecified condition documented in this encounter Care Teams Room Service Clerk Relationship Specialty Start Date End Date Pete Faye MD PCP - General 03/18/10 documented as of this encounter
--- OUTSIDE RECORDS SUMMARY | 2024-04-20 00:05 | XMS_ITS | Encounter Summary ---
Author Organization [facility] Address [facility] Eric [facility], [place] [place] [address] Care Team Providers Care Gas Substation Operator Name Role Phone Pete Faye MD Primary Care Provider Unavaila ble Reason for Visit * Reason Comments Skin Check Encounter Details Date Type Department Care Team (Late st Contact Info) Description 10/25/2014 5:00 PM EDT Office Visit Dermatology at [facility] [address] [place] [address] Tere Multani MD [facility] [address] [place] [address] Seborrheic keratosis, inflamed; Solar lentiginosis; Seborrheic keratosis Discharge Disposition: Home Social History Tobacco Use Types Packs/Day Years Used Date Smoking Tobacco: Never Sex and Gender Information Value Date Recorded Sex Assigned at Not on file Gender Identity Not on file Sexual Orientation Not on file documented as of this encounter Progress Notes * Genia Navarro LPN - 10/25/2014 4:28 PM EDT DERMATOLOGY NEW PATIENT CLINIC NOTE Date of service: 10/25/2014 Mireya Figueroa : 1960 Provider: Tere Multani MD PROBLEM:Skin Cancer Exam HPI Ms. Figueroa is a 54 y.o. female here for a complete skin exam as she has never had one. She has noticed over the last few years irritating spots between her breast. New patient; self-referred. ADR: Review of patient's allergies indicates not on file. MEDS: No current outpatient prescriptions on file prior to visit. No current facility-administered medications on file prior to visit. ROS General: feeling well Skin: denies other skin complaints EXAM General: NAD, pleasant, cooperative Skin: A total body skin exam except for areas covered by underwear was performed. This includes examination of the skin of the face, ears, neck, chest, axillae, left and right upper and lower extremities, hands and feet, abdomen, and except the areas covered by underwear were not examined. Significant skin findings: A. Irritated 0.4-0.6cm brown papules with waxy, stuck-on appearance between breast and left scalp B. scattered 0.4-0.6cm brown papules with waxy, stuck-on appearance. C.0.3-0.6cm light-brown evenly pigmented, well-demarcated macule D. 0.3-0.6cm light-brown evenly pigmented, well-demarcated macule ASSESSMENT/PLAN: A. Irritated Seborrheic Keratosis Procedure Note: Procedure: Destruction of lesion(s) with cryotherapy. Number: 3 Location: as above Discussed procedure and expectations including risks (including risk of hypopigmentation) and benefits. Verbal consent obtained. Frozen with LN2, 15-30 second thaw time, TWICE. There were no complications; the patient tolerated the procedure well. Post-procedure expectations and wound care were reviewed. B. Seborrheic Keratosis -reassured C. Solar Lentigines Sun avoidance, protective clothing and the use of SPF 30 sunscreen is advised. Observe closely for skin changes and call if such occurs. D. No Worrisome pigmented lesions E. RTC 18 months I am documenting this encounter acting as the scribe for and in the presence of Dr. Multani. Genia Navarro LPN I performed the above scribed service and agree with the accuracy of the documentation in this encounter. Tere Multani MD Section of Dermatology [facility] documented in this encounter Plan of Treatment Not on file documented as of this encounter Visit Diagnoses Diagnosis Seborrheic keratosis, inflamed Inflamed seborrheic keratosis Solar lentiginosis Other dyschromia Seborrheic keratosis Other seborrheic keratosis documented in this encounter Care Teams Gas Substation Operator Relationship Specialty Start Date End Date Pete Faye MD PCP - General 03/18/10 documented as of this encounter
--- OUTSIDE RECORDS SUMMARY | 2024-04-20 00:05 | XMS_ITS | Encounter Summary ---
Author Organization [facility] Address [address] [place] [address] Care Team Providers Care Physician'S Assistant Name Role Phone Unknown, Provider Primary Care Provider Unava ilable Encounter Details Date Type Department Care Team ([facility] st Contact Info) Description 05/17/2018 Results Only [facility]- [facility] [phone] Barbie Bonilla PA [address] [place], [place] [phone] Social History Tobacco Use Types Packs/Day Years [...] Procedure Name Priority Date/Time Associated Diagnosis Comments PAP TEST- RESULT ONLY Routine 05/17/2018 0:00 EST documented in this encounter Results * PAP TEST- RESULT ONLY (05/17/2018 0:00 EST) Pathology Report: CYTOPATHOLOGY REPORT Reports generated via electronic interface contain original data; however they are lacking the format of the original report. Caution should be taken when reading/interpreti ng unformatted reports. Name: ? BIGG FIGUEROA ? Accession #: ? [id number] ? : ? 1960 (Age: 58) ??F ?Collect Date: ? 05/17/2018 ? Location: ? [facility] ? Receive Date: ? 05/18/2018 ? Provider: BARBIE SCHWAB Copy to: ? Final Report SPECIMEN ADEQUACY ? Satisfactory for Evaluation - transformation zone component present GENERAL CATEGORIZATION ? Negative for Intraepithelial Lesion or Malignancy ?? Menstrual/Pregnanc y Status: ??Post Menopausal Other: Additional clinical information: Bled with cytobrush? post menop tissue twinning Additional clinical information: V72.31 Specimen/Source: ??Pap Test, Cervix, ThinPrep Imaging System with manual evaluation Document reviewed and electronically signed by: ? Reyna Polk, CT(ASCP) ? Report ??Date: 05/20/2018 13:53 HPV with Pap Test ? Date Ordered: ? 05/20/2018 ? Status: ?? Signed Out ?Date Complete: ? 05/23/2018 ? By: ??System Interface ? Date Reported: ? 05/23/2018 ? Interpretation RESULT: Negative for HPV. No E6 or E7 mRNA is detected from HPV types 16,18,31,33,35, 39,45,51,52,56,58, 59,66, and 68 by chair springer mediated amplification. Comments Document reviewed and electronically signed by: ? System Interface ? Report date: 05/23/2018 By the signature above, the attending physician certifies that he/she has personally conducted a gross and/or microscopic examination of the described specimens and rendered or confirmed the above diagnosis. End of Report [facility] 05/17/2018 05/18/2018 us Barbie SCHWAB PATHOLOGY ORDERABLES Final Res ult [facility] [address] [place] [address] documented in this encounter Visit Diagnoses Not on filedocumented in this encounter Care Teams Physician'S Assistant Relationship Specialty Start Date End Date Unknown, Provider, PCP - General 05/17/18 documented as of this encounter
--- OUTSIDE RECORDS SUMMARY | 2024-04-20 00:05 | XMS_ITS | Encounter Summary ---
Author Organization [facility] Address [address] [place] [address] Care Team Providers Care Passenger Interline Clerk Name Role Phone Unavailable Primary Care Provider Unavailabl e Encounter Details Date Type Department Care Team (Late st Contact Info) Description 02/26/2014 Results Only [facility] Services - [facility] ([address] [address] Winifred Diego, DEACON Social History Tobacco Use [...] Diagnosis Comments PAP TEST- RESULT ONLY Routine 02/26/2014 0:00 EST documented in this encounter Results * PAP TEST- RESULT ONLY (02/26/2014 0:00 EST) Pathology Report: CYTOPATHOLOGY REPORT Reports generated via electronic interface contain original data; however they are lacking the format of the original report. Caution should be taken when reading/interpreti ng unformatted reports. Name: ? BIGG FIGUEROA ? Accession #: ? [id number] ? : ? 1960 (Age: 53) ??F ?Collect Date: ? 02/26/2014 ? Location: ? [facility] ? Receive Date: ? 02/27/2014 ? Provider: WINIFRED DIEGO NP Copy to: RAJ BOND MD ? Final Report SPECIMEN ADEQUACY ? Satisfactory for Evaluation - transformation zone component present GENERAL CATEGORIZATION ? Negative for Intraepithelial Lesion or Malignancy ?? Last Menstrual Period: 03/2010 Specimen/Source: ??Pap Test, Cervix/Endocervix, ThinPrep Imaging System with manual evaluation Document reviewed and electronically signed by: ? TRIPP Carroll(ASCP) ? Report ??Date: 03/05/2014 10:53 HPV with Pap Test ? Date Ordered: ? 03/05/2014 ? Status: ?? Signed Out ?Date Complete: ? 03/07/2014 ? By: ??System Interface ? Date Reported: ? 03/07/2014 ? Interpretation RESULT: Negative for HPV. No E6 or E7 mRNA is detected from HPV types 16,18,31,33,35, 39,45,51,52,56,58, 59,66, and 68 by salesperson yard goods mediated amplification. Comments Document reviewed and electronically signed by: ? System Interface ? Report date: 03/07/2014 By the signature above, the attending physician certifies that he/she has personally conducted a gross and/or microscopic examination of the described specimens and rendered or confirmed the above diagnosis. End of Report [facility] 02/26/2014 02/27/2014 us Winifred Diego NP PATHOLOGY ORDERABLES Final Re sult [facility] [address] [place] [address] documented in this encounter Visit Diagnoses Not on filedocumented in this encounter
--- OUTSIDE RECORDS SUMMARY | 2024-04-20 00:05 | XMS_ITS | Encounter Summary ---
Author Organization [facility] Address [address] [place] [address] Care Team Providers Care Account Relationship Manager Name Role Phone Unknown, Provider MD Primary Care Provider Unava ilable Encounter Details Date Type Department Care Team (Late st Contact Info) Description 03/13/2020 Results Only [facility] - Main [address] [address] Unknown, Provider, Social History Tobacco Use Types Packs/Day Years [...] Procedure Name Priority Date/Time Associated Diagnosis Comments SURGICAL PATHOLOGY Routine 03/13/2020 documented in this encounter Results * SURGICAL PATHOLOGY (03/13/2020) 03/13/2020 03/14/2020 7:1 2 EST Narrative [facility] - 03/15/2020 16:24 EST ----- ------- Name: BIGG FIGUEROA ? : [birth year] ?Age/Sex: 59/F ?Unit#: [id number] ? Loc: LAB.POP ? Status: REG REF ?? Reg Date: 03/13/20 ? Pt.Phone Number: ? ----- ------- Specimen: [id number] ? STATUS: SOUT ?Spec Date:03/13/20 ? Physician Copies: ?NONE,NONE ? Tissues: A ?? Skin, other than cyst (LEFT INFERIOR MEDIAL UPPER B) ? RAJ SIU ?LOUISA LAURA ? CPT: 53502 ?? Units: ??1 ?FINAL DIAGNOSIS ? A. SKIN OF ARM, LEFT LATERAL PROXIMAL UPPER, SHAVE BIOPSY: ? - Melanocytic nevus, intradermal type. ??See comment. ? - Nevus present at deep tissue edge. ? B. SKIN OF BACK, LEFT INFERIOR MEDIAL UPPER, SHAVE BIOPSY: ? - Melanocytic nevus, compound type, with unusual architectural features and ? mild cytologic atypia. ? - Nevus present focally at deep tissue edge. ----- ------- ?COMMENT ? The biopsy from Left lateral proximal upper arm (A) consists of a banal intradermal melanocytic nevus. ??Near the base of the biopsy, there is a collection of melanophages that may represent the hyperpigmented base seen clinically. ??There is no atypia associated with the melanophages. ?? [id number] ? GROSS DESCRIPTION ? A. ??Received in formalin labeled with proper patient identification (P,J) and ? left lateral proximal upper is a rubbery mottled porras-brown papule, 0.6 x 0.5 ? x 0.2 cm. ??The margin is inked, bisected and entirely submitted in A. ? B. ??Received in formalin labeled with proper patient identification (P,J) and ? left inferior medial upper is an ovoid skin shave, 0.8 x 0.7 x 0.1 cm. ??The ? central skin surface shows a slightly raised mottled porras to brown-black papule, ? 0.5 cm in greatest dimension. The margin is inked, trisected and entirely ? submitted in B. ??/MB ----- ------- Patient: BIGG FIGUEROA ? #[id number] ? (Continued) ----- ------- Specimen: [id number] ? Received: 03/14/20 ?(Continued) ?MICROSCOPIC DESCRIPTION ? A. ??Sections consist of a papule formed by a symmetric and circumscribed ? proliferation of melanocytes within the dermis. ??The melanocytes form nests and ? cords showing maturation with descent. ??Near the base of the biopsy, there is a ? focal collection of ??heavily pigmented melanophages. ? B. ??Sections consist of a small but asymmetric proliferation of melanocytes. ? The intraepidermal component consists primarily of nests. ??The nests vary in ? size and spacing. ??Individual melanocytes are increased to a minimal degree. ? The melanocytes are slightly enlarged and have dark nuclei. ??The dermal ? component consists of nests and cords of similar cells that mature. ??There are ? scattered melanophages. ?? PREOP DX/CLINICAL HISTORY ?A. Left lateral proximal upper arm; dome shaped regular papule on ?a hyperpigmented base; DDX: compound nevus vs atypical nevus; ?Notes: excision; B. Left inferior medial upper back; irregular ?brown dark brown macule; DDX: atypical nevus vs melanoma; Notes: ?excision Signed ____(signature on file)____ Alondra Guido M.D. 03/15/20 ?? By the signature above, the attending physician certifies that he/she has personally conducted a gross and/or microscopic examination of the described specimens and rendered or confirmed the above diagnosis. Test Performed by [facility], [address] [place] [address] Hydroelectric Plant Electrical Engineer: Ariana Engel MD PHD ----- ------- us Provider Unknown MD PATHOLOGY ORDERABLES Final R esult [facility] [address] [place] [address] documented in this encounter Visit Diagnoses Not on filedocumented in this encounter Care Teams Account Relationship Manager Relationship Specialty Start Date End Date Unknown, Provider, PCP - General 05/17/18 documented as of this encounter
--- OUTSIDE RECORDS SUMMARY | 2024-04-20 00:05 | XMS_ITS | Encounter Summary ---
Author Organization [facility] R[place]A [place]ons [address] Care Team Providers Care Glass Breaker Name Role Phone Unavailable Primary Care Provider Unavailabl e Encounter Details Date Type Department Care Team (Late st Contact Info) Description 08/21/2009 - 08/21/2009 11:59 PM EDT Hospital Encounter Radiology Library at [facility] [place] [phone] [address] Marge Temporary Screening Discharge Disposition: Home [...] Comments FILM LIBRARY STORAGE ONLY MAMMO Routine 08/21/2009 12:00 AM EDT Screening documented in this encounter Results * Film Library- Storage only Mammo (08/21/2009 12:00 AM EDT) Narrative [facility] - 07/30/2015 10:57 AM EDT See PACS for result report. Dr Leann Bird IMG FILM LIBRARY ORD ERABLES [facility] Thanh [place] documented in this encounter Visit Diagnoses Diagnosis Screening Screening for unspecified condition documented in this encounter
--- OUTSIDE RECORDS SUMMARY | 2024-04-20 00:05 | XMS_ITS | Encounter Summary ---
Author Organization [facility] Address [address] [place] [address] Care Team Providers Care Crack Off Person Name Role Phone Unavailable Primary Care Provider Unavailabl e Encounter Details Date Type Department Care Team (Late st Contact Info) Description 10/20/2002 Results Only [facility] [address] [place] [address] Barbie Stafford, [facility] [address] [place] [address] [place] [address] Social History Tobacco Use Types [...] Priority Date/Time Associated Diagnosis Comments CYTOPATHOLOGY Routine 10/20/2002 0:00 EDT documented in this encounter Results * CYTOPATHOLOGY (10/20/2002 0:00 EDT) Pathology Report: CYTOPATHOLOGY REPORT Reports generated via electronic interface contain original data; however they are lacking the format of the original report. Caution should be taken when reading/interpreti ng unformatted reports. Name: ? BIGG FIGUEROA ? Accession #: ? [id number] : ? 1960 (Age: 42) ??F ?Collect Date: ? 10/20/2002 Location: ? [facility] ? Receive Date: ? 10/23/2002 Provider: ?BARBIE STAFFORD BIODIESEL ENGINEERING MANAGER Copy to: ? Specimen/Source: ?ThinPrep Pap Test, Cervix/Endocervix Last Menstrual Period: ? 10/12/02 Other: ? Additional clinical information: Atypical 1994 ? SPECIMEN ADEQUACY ? Satisfactory for Evaluation - transformation zone component present GENERAL CATEGORIZATION ? Negative for Intraepithelial Lesion or Malignancy ? Document reviewed and electronically signed by: ? Karrie Terry CT(ASCP) ? Report Date: ??10/26/2002 09:22 End of Report [facility] 10/20/2002 10/23/2002 us Barbie Stafford BIODIESEL ENGINEERING MANAGER PATHOLOGY ORDERABLES Final R esult [facility] [address] [place] [address] documented in this encounter Visit Diagnoses Not on filedocumented in this encounter
--- OUTSIDE RECORDS SUMMARY | 2024-04-20 00:05 | XMS_ITS | Encounter Summary ---
Author Organization [facility] R[place]ons [address] Care Team Providers Care Bail Agent Name Role Phone Unavailable Primary Care Provider Unavailabl e Encounter Details Date Type Department Care Team (Late st Contact Info) Description 07/28/2008 - 07/28/2008 11:59 PM EDT Hospital Encounter Radiology Library at [facility] [place] [phone] [address] Marge Temporary Screening Discharge Disposition: Home [...] Comments FILM LIBRARY STORAGE ONLY MAMMO Routine 07/28/2008 12:00 AM EDT Screening documented in this encounter Results * Film Library- Storage only Mammo (07/28/2008 12:00 AM EDT) Narrative [facility] - 07/30/2015 10:57 AM EDT See PACS for result report. Dr Leann Bird IMG FILM LIBRARY ORD ERABLES [facility] Thanh [place] documented in this encounter Visit Diagnoses Diagnosis Screening Screening for unspecified condition documented in this encounter
--- OUTSIDE RECORDS SUMMARY | 2024-04-20 00:05 | XMS_ITS | Encounter Summary ---
Author Organization [facility] [place] [address] Care Team Providers Care Crown Pouncer Name Role Phone Pete Faye MD Primary Care Provider Georgiaa ble Encounter Details Date Type Department Care Team (Late st Contact Info) Description 07/31/2015 External Results Radiology Library at [facility] [place] [phone] Provider, Scanning Social History Tobacco Use Types Packs/Day Years Used Date Smoking Tobacco: Never Sex and Gender Information Value Date Recorded Sex Assigned at Not on file Gender Identity Not on file Sexual Orientation Not on file documented as of this encounter Plan of Treatment Not on file documented as of this encounter Procedures Procedure Name Priority Date/Time Associated Diagnosis Comments MAMMOGRAM SCAN Routine 02/26/2014 MAMMOGRAM SCAN Routine 09/02/2012 MAMMOGRAM SCAN Routine 08/27/2011 MAMMOGRAM SCAN Routine 08/25/2010 MAMMOGRAM SCAN Routine 08/21/2009 MAMMOGRAM SCAN Routine 07/28/2008 MAMMOGRAM SCAN Routine 05/02/2007 documented in this encounter Results * Scan Doc: Mammogram (02/26/2014) Anatomical Region Laterality Modality Other Scanning Provider MEDIA MGR SCAN EXT O RDR/RSLT * Scan Doc: Mammogram (09/02/2012) Anatomical Region Laterality Modality Other Scanning Provider MEDIA MGR SCAN EXT O RDR/RSLT * Scan Doc: Mammogram (08/27/2011) Anatomical Region Laterality Modality Other Scanning Provider MEDIA MGR SCAN EXT O RDR/RSLT * Scan Doc: Mammogram (08/25/2010) Anatomical Region Laterality Modality Other Scanning Provider MEDIA MGR SCAN EXT O RDR/RSLT * Scan Doc: Mammogram (08/21/2009) Anatomical Region Laterality Modality Other Scanning Provider MEDIA MGR SCAN EXT O RDR/RSLT * Scan Doc: Mammogram (07/28/2008) Anatomical Region Laterality Modality Other Scanning Provider MEDIA MGR SCAN EXT O RDR/RSLT * Scan Doc: Mammogram (05/02/2007) Anatomical Region Laterality Modality Other Scanning Provider MEDIA MGR SCAN EXT O RDR/RSLT documented in this encounter Visit Diagnoses Not on filedocumented in this encounter Care Teams Crown Pouncer Relationship Specialty Start Date End Date Pete Faye MD PCP - General 03/18/10 documented as of this encounter
--- OUTSIDE RECORDS SUMMARY | 2024-04-20 00:05 | XMS_ITS | Clinical Summary ---
Author Organization [facility] Address [address] [place] [address] Care Team Providers Care Welding Process Specialist Name Role Phone Unknown, Provider Primary Care Provider Unava ilable Social History Tobacco Use Types Packs/Day Years Used Date Smoking Tobacco: Never Assessed Comments Unknown Sex and Gender Information Value Date Recorded Sex Assigned at Not on file Legal Sex Female 18:12 EST Gender Identity Not on file Sexual Orientation Not on file Plan of Treatment Health Maintenance Due Date Last Done Comments Hepatitis C Screen 1960 Fall Risk Screening 2023 COVID-19 Vaccine (2023-25 season) 2023 RSV Immunization ( o r 60+ Years) (1 - 1-dose 75+ series) 2033 Insurance [employer] TPA Care Teams Welding Process Specialist Relationship Specialty Start Date End Date Unknown, Provider, PCP - General 05/17/18
--- OUTSIDE RECORDS SUMMARY | 2024-04-20 00:05 | XMS_ITS | Encounter Summary ---
Author Organization [facility] [place] [address] Care Team Providers Care Bun Machine Operator Name Role Phone Pete Faye MD Primary Care Provider Unavaila ble Encounter Details Date Type Department Care Team (Late st Contact Info) Description 08/27/2011 - 08/27/2011 11:59 PM EDT Hospital Encounter Radiology Library [place] [address] [address] Marge Temporary Screening Discharge Disposition: Home [...] Comments FILM LIBRARY STORAGE ONLY MAMMO Routine 08/27/2011 12:00 AM EDT Screening documented in this encounter Results * Film Library- Storage only Mammo (08/27/2011 12:00 AM EDT) Narrative [facility] - 07/30/2015 10:58 AM EDT See PACS for result report. Dr Leann Bird IMG FILM LIBRARY ORD ERABLES [place], [place] documented in this encounter Visit Diagnoses Diagnosis Screening Screening for unspecified condition documented in this encounter Care Teams Bun Machine Operator Relationship Specialty Start Date End Date Pete Faye MD PCP - General 03/18/10 documented as of this encounter
--- OUTSIDE RECORDS SUMMARY | 2024-04-20 00:05 | XMS_ITS | Encounter Summary ---
Author Organization [facility] Address [address] [place] [address] Care Team Providers Care Goldsmith Apprentice Name Role Phone Unavailable Primary Care Provider Unavailabl e Encounter Details Date Type Department Care Team (Late st Contact Info) Description 05/09/2009 Orders Only [facility] Laboratory Services - [facility] ([facility] [address] [place], [place] [id number] Barbie Stafford, [facility] [address] [place] [address] [place] [address] Social History Tobacco Use Types [...] Priority Date/Time Associated Diagnosis Comments CYTOPATHOLOGY Routine 05/09/2009 0:00 EST documented in this encounter Results * CYTOPATHOLOGY (05/09/2009 0:00 EST) Pathology Report: CYTOPATHOLOGY REPORT ? Reports generated via electronic interface contain original data; ? however they are lacking the format of the original report. ? Caution should be taken when reading/interpreti ng unformatted reports. ? Name: ? BIGG FIGUEROA ? Accession #: ? [id number] ? : ? 1960 (Age: 49) ??F ?Collect Date: ? 05/09/2009 ? Location: ? [facility] ? Receive Date: ? 05/10/2009 ? Provider: ?BARBIE KULWINDER CONVICT GUARD ? Copy to: ? Specimen/Source: ?Pap Test, Cervix/Endocervix, ThinPrep Imaging System ? with manual evaluation ? Last Menstrual Period: ? 02/2009 ? Other: ? HPVA - HPV testing requested if ASC-US on the current ThinPrep Pap test. ? SPECIMEN ADEQUACY ? Satisfactory for Evaluation ? - transformation zone component present ? GENERAL CATEGORIZATION ? Negative for Intraepithelial Lesion or Malignancy ? Document reviewed and electronically signed by: ? Lynan Jam, CT(ASCP) ? Report Date: ??05/13/2009 13:48 ? End of Report ? [facility] 05/09/2009 05/10/2009 us Barbie Stafford CONVICT GUARD PATHOLOGY ORDERABLES Final R esult [facility] [address] [place] [address] documented in this encounter Visit Diagnoses Not on filedocumented in this encounter
--- OUTSIDE RECORDS SUMMARY | 2024-04-20 00:05 | XMS_ITS | Encounter Summary ---
Author Organization [facility] Address [address] [place] [address] Care Team Providers Care Roto Rooter Operator Name Role Phone Unknown, Provider Primary Care Provider Unava ilable Encounter Details Date Type Department Care Team (Late st Contact Info) Description 03/04/2022 Lab Requisition [facility] Pathology & Laboratory Medicine - [address] [address] Will Holly MD [address] [place] [address] Incomplete uterovaginal prolapse; Stress incontinence (female) (male) Social History Tobacco Use Types Packs/Day Years [...] Priority Date/Time Associated Diagnosis Comments SURGICAL PATHOLOGY Today 03/03/2022 9: 00 EST Incomplete uterovaginal prolapse documented in this encounter Results * SURGICAL PATHOLOGY (03/03/2022 9:00 EST) Note to Patient The following pathology results have been interpreted by your pathologist and may be available to you before your health provider has had the opportunity to review them. Please allow time for your provider to receive these results and explore management options, if applicable. 03/06/2022 15:09 EST [facility] Final Diagnosis A. UTERUS AND CERVIX, HYSTERECTOMY: - Endometrium: - Inactive. - Myometrium: - No specific pathologic features. - Cervix: - No specific pathologic features. - Serosa: - No specific pathologic features. 03/06/2022 15:09 [facility] Attestation There was significant resident/fellow involvement in the diagnostic evaluation of this case. By the signature below, the attending physician certifies that they have personally conducted a gross and/or microscopic examination of the described specimens and rendered or confirmed the above diagnosis. 03/06/2022 15:09 [facility] at 1509 Clinical History Uterine prolapse; clinical diagnosis code: N81.2, N39.3 03/06/2022 15:09 [facility] Gross Description A. Received in formalin labelled with proper patient identification (initials P, J) and uterus and cervix is an intact uterus and cervix (34 g, 7.5 cm cervix to fundus x 3.1 cm cornu to cornu x 2.5 cm anterior to posterior) without attached adnexa. The uterine serosa is mottled porras to dark brown and smooth. The endometrium is porras-pink with a maximum thickness of 0.2 cm. The myometrium is porras and slightly trabeculated with an average thickness of 1.1 cm. No myometrial nodules or lesions are identified. The ectocervix is porras-white and smooth and the endocervix is porras and furrowed. Kiln Firer sections are submitted as follows: BLOCK DIAL A1- anterior cervix A2- posterior cervix A3- full-thickness anterior endomyometrium A4- full-thickness posterior endomyometrium IRWIN JACKSON DO 03/04/2022 14:28 03/06/2022 15:09 [facility] Resident/Gomez w: Irwin Jackson DO 03/06/2022 15:09 [facility] Performing Lab [facility] 03/06/2022 15:09 [facility] Scanned Images 03/06/2022 15:09 [facility] Tissue SPECIMEN FROM UTERUS / Unknown 03/03/2022 9:00 EST 03/04/2022 10:53 EST Will Holly MD PATHOLOGY ORDERABLES Final Result [facility] [address] [place] [address] documented in this encounter Visit Diagnoses Diagnosis Incomplete uterovaginal prolapse Uterovaginal prolapse, incomplete Stress incontinence (female) (male) documented in this encounter Care Teams Roto Rooter Operator Relationship Specialty Start Date End Date Unknown, Provider, PCP - General 05/17/18 documented as of this encounter
--- OUTSIDE RECORDS SUMMARY | 2024-04-20 00:05 | XMS_ITS | Encounter Summary ---
Author Organization [facility] Address [address] [place] [address] Care Team Providers Care Photographs Curator Name Role Phone Unavailable Primary Care Provider Unavailabl e Encounter Details Date Type Department Care Team (Late st Contact Info) Description 04/22/2007 Results Only [facility] [place] conversion [address] [place] [address] Barbie Stafford, [facility] [address] [place] [address] [place] [address] Social History Tobacco Use Types [...] Priority Date/Time Associated Diagnosis Comments CYTOPATHOLOGY Routine 04/22/2007 0:00 EST documented in this encounter Results * CYTOPATHOLOGY (04/22/2007 0:00 EST) Pathology Report: CYTOPATHOLOGY REPORT Reports generated via electronic interface contain original data; however they are lacking the format of the original report. Caution should be taken when reading/interpreti ng unformatted reports. Name: ? BIGG FIGUEROA ? Accession #: ? [id number] : ? 1960 (Age: 47) ??F ?Collect Date: ? 04/22/2007 Location: ? [facility] ? Receive Date: ? 04/25/2007 Provider: ?BARBIE STAFFORD LABORER STEEL HANDLING Copy to: ? Specimen/Source: ?ThinPrep Pap Test, Cervix/Endocervix, processed on [employer] Connect ThinPrep Imaging System, with manual evaluation Last Menstrual Period: ? 04/16/07 Previous Gynecologic Pathology: ? Yes: 1993 atypical but degenerated cells present Other: ? HPVA - HPV testing requested if ASC-US on the current ThinPrep Pap test. ? SPECIMEN ADEQUACY ? Satisfactory for Evaluation - transformation zone component present GENERAL CATEGORIZATION ? Negative for Intraepithelial Lesion or Malignancy ? Document reviewed and electronically signed by: ? Gin Murray, TRIPP(ASCP)(IAC) ? Report Date: ??04/27/2007 17:07 End of Report ASHLEY BARILLAS 04/22/2007 04/25/2007 us Barbie Stafford LABORER [employer] HANDL[employer] PATHOLOGY ORDERABLES Final R esult [facility] [address] [place] [address] documented in this encounter Visit Diagnoses Not on filedocumented in this encounter
--- OUTSIDE RECORDS SUMMARY | 2024-04-20 00:05 | XMS_ITS | Clinical Summary ---
Author Organization [facility] Address [facility] [place] [address] Care Team Providers Care Histopathology Technician Name Role Phone Pete Faye MD Primary Care Provider Unavaila ble Allergies Active Allergy Reactions Criticality Noted Date Comments Tree Nut Itching 10/25/2014 hives Atorvastatin 10/25/2014 Painful joints Medications Medication Sig Dispensed Refills Start Date End Date Status aspirin 81 mg Tablet, Delayed Release (E.C.) Take 81 mg by mouth daily. Active proGESTerone (PROMETRIUM) 100 mg Capsule Take 100 mg by mouth daily. Active Active Problems Problem Noted Date Diagnosed Date Seborrheic keratosis, inflamed 10/27/2014 Solar lentiginosis 10/27/2014 Seborrheic keratosis 10/27/2014 Immunizations Name Administration Dates Next Due Influenza PF, Split 01/30/2014 Influenza Quadrivalent, Preservative Free 2016 Influenza Trivalent w/Preservative 01/08/2015 Influenza Trivalent, Preservative Free 6 MMR Vaccine LIVE 12/29/2013,11/27/2013 Social History Tobacco Use Types Packs/Day Years Used Date Smoking Tobacco: Never Sex and Gender Information Value Date Recorded Sex Assigned at Not on file Gender Identity Not on file Sexual Orientation Not on file Plan of Treatment Health Maintenance Due Date Last Done Comments CT Colonography 1960 Colonoscopy 1960 Colorectal Cancer Screening 1960 FIT DNA 1960 FIT 1960 Sigmoidoscopy (10 year) with FIT yearly 1960 Sigmoidoscopy 1960 Hepatitis C Screening 1976 Tetanus/Diphtheria/Pertussis Vaccines (1 - Tdap) 1977 HPV test 1988 PAP Smear 1988 Breast Cancer Share Decision Needed 1998 Breast Cancer screening 1998 Pneumoccocal Vaccine: 65+ (1 of 1 - PCV) 2008 Zoster vaccine (1 of 2) 2008 Advance Directive 2013 Bone Density Scan 2023 Covid-19 Vaccine (1 - 2023-2 5 season) 2023 Influenza (Flu) vaccine (1 o f 1 - Influenza standard series) 12/26/2023 02/15/2017, 01/23/2016, 01/08/2015, Additional history exists Care Teams Histopathology Technician Relationship Specialty Start Date End Date Pete Faye MD PCP - General 03/18/10
--- OUTSIDE RECORDS SUMMARY | 2024-04-20 00:05 | XMS_ITS | Encounter Summary ---
Author Organization [facility] Address [address] [place] [address] Care Team Providers Care Certified Social Workers In Health Care Name Role Phone Unavailable Primary Care Provider Unavailabl e Encounter Details Date Type Department Care Team (Late st Contact Info) Description 03/26/2006 Results Only [facility] [place] conversion [address] [place] [address] Barbie Stafford, [facility] [address] [place] [address] [place] [address] Social History Tobacco Use Types [...] Priority Date/Time Associated Diagnosis Comments CYTOPATHOLOGY Routine 03/26/2006 0:00 EST documented in this encounter Results * CYTOPATHOLOGY (03/26/2006 0:00 EST) Pathology Report: CYTOPATHOLOGY REPORT Reports generated via electronic interface contain original data; however they are lacking the format of the original report. Caution should be taken when reading/interpreti ng unformatted reports. Name: ? BIGG FIGUEROA ? Accession #: ? [id number] : ? 1960 (Age: 46) ??F ?Collect Date: ? 03/26/2006 Location: ? [facility] ? Receive Date: ? 03/29/2006 Provider: ?BARBIE STAFFORD SAUSAGE CUTTER Copy to: ? Specimen/Source: ?ThinPrep Pap Test, Cervix/Endocervix, processed on [employer] ThinPrep Imaging System, with manual evaluation Last Menstrual Period: ? 03/16/06 Other: ? Additional clinical information: 1993 atypical HPVA - HPV testing requested if ASC-US on the current ThinPrep Pap test. ? SPECIMEN ADEQUACY ? Satisfactory for Evaluation - transformation zone component present GENERAL CATEGORIZATION ? Negative for Intraepithelial Lesion or Malignancy ? Document reviewed and electronically signed by: ? WAYNE Cam(ASCP) ? Report Date: ??04/03/2006 10:10 End of Report [facility] BARILL[facility] 03/26/2006 03/29/2006 us Barbie Stafford SAUSAGE CUTTER PATHOLOGY ORDERABLES Final R esult [facility] [address] [place] [address] documented in this encounter Visit Diagnoses Not on filedocumented in this encounter
--- OUTSIDE RECORDS SUMMARY | 2024-04-20 00:05 | XMS_ITS | Encounter Summary ---
Author Organization [facility] Address [address] [place] [address] Care Team Providers Care Registered Nurse Maternal Child Name Role Phone Unavailable Primary Care Provider Unavailabl e Encounter Details Date Type Department Care Team (Late st Contact Info) Description 05/13/2010 Results Only [facility] [place] [facility] - [facility] ([facility] [address] [place] [address] Winifred Diego, DEACON Social History Tobacco [...] Priority Date/Time Associated Diagnosis Comments CYTOPATHOLOGY Routine 05/13/2010 0:00 EST documented in this encounter Results * CYTOPATHOLOGY (05/13/2010 0:00 EST) Pathology Report: CYTOPATHOLOGY REPORT ? Reports generated via electronic interface contain original data; ? however they are lacking the format of the original report. ? Caution should be taken when reading/interpreti ng unformatted reports. ? Name: ? SARAY, BIGG ? Accession #: ? [id number] ? : ? 1960 (Age: 50) ??F ?Collect Date: ? 05/13/2010 ? Location: ? [facility] ? Receive Date: ? 05/14/2010 ? Provider: WINIFRED M ALLIE SHEET SORTER ? Copy to: ? Final Report ? SPECIMEN ADEQUACY ? Satisfactory for Evaluation ? - transformation zone component present ? GENERAL CATEGORIZATION ? Negative for Intraepithelial Lesion or Malignancy ? Last Menstural Period: 12/18/10 ? Hormonal/Contracep tive status: Progesterone: natural supplementation ? Specimen/Source: ??Pap Test, Cervix/Endocervix, ThinPrep Imaging System with ? manual evaluation ? Document reviewed and electronically signed by: ? Pete Morris CT(ASCP) ? Report ??Date: 05/19/2010 13:36 ? HPV with Pap Test ? Date Ordered: ? 05/19/2010 ? Status: ?? Signed Out ?Date Complete: ? 05/22/2010 ? By: ??System Interface ? Date Reported: ? 05/22/2010 ? Interpretation ? RESULT: Negative for HPV types 16, 18, 31, 33, 35, 39, 45, 51, 52, ? 56, 58, 59, and 68. ? Comments ? Document reviewed and electronically signed by: ? System Interface ? Report date: 05/22/2010 ? By the signature above, the attending physician certifies that he/she has ? personally conducted a gross and/or microscopic examination of the described ? specimens and rendered or confirmed the above diagnosis. ? End of Report ? ASHLEY BARILLAS 05/13/2010 05/14/2010 us Winifred Diego SHEET SORTER PATHOLOGY ORDERABLES Final Re sult [facility] [address] [place] [address] documented in this encounter Visit Diagnoses Not on filedocumented in this encounter
--- OUTSIDE RECORDS SUMMARY | 2024-04-20 00:05 | XMS_ITS | Encounter Summary ---
Author Organization [facility] Address [address] [place] [address] Care Team Providers Care Gettering Operator Name Role Phone Unavailable Primary Care Provider Unavailabl e Encounter Details Date Type Department Care Team (Late st Contact Info) Description 03/17/2005 Results Only [facility] [place] conversion [address] [place] [address] Barbie Stafford, [facility] [address] [place] [address] [place] [address] Social History Tobacco Use Types [...] Priority Date/Time Associated Diagnosis Comments CYTOPATHOLOGY Routine 03/17/2005 0:00 EST documented in this encounter Results * CYTOPATHOLOGY (03/17/2005 0:00 EST) Pathology Report: CYTOPATHOLOGY REPORT Reports generated via electronic interface contain original data; however they are lacking the format of the original report. Caution should be taken when reading/interpreti ng unformatted reports. Name: ? BIGG SO ? Accession #: ? [id number] : ? 1960 (Age: 44) ??F ?Collect Date: ? 03/17/2005 Location: ? [facility] ? Receive Date: ? 03/18/2005 Provider: ?BARBIE STAFFORD PLATER HOT DIP Copy to: ? Specimen/Source: ?ThinPrep Pap Test, Cervix/Endocervix, processed on [employer] ThinPrep Imaging System, with manual evaluation Last Menstrual Period: ? 03/07/05 Other: ? HPVA - HPV testing requested if ASC-US on the current ThinPrep Pap test. ? SPECIMEN ADEQUACY ? Satisfactory for Evaluation - transformation zone component present GENERAL CATEGORIZATION ? Negative for Intraepithelial Lesion or Malignancy ? Document reviewed and electronically signed by: ? Nikhil Hood, TRIPP(ASCP) ? Report Date: ??03/25/2005 10:34 End of Report ASHLEY BARILLAS 03/17/2005 03/18/2005 us Barbie Stafford PLATER HOT DIP PATHOLOGY ORDERABLES Final R esult [facility] [address] [place] [address] documented in this encounter Visit Diagnoses Not on filedocumented in this encounter
--- OUTSIDE RECORDS SUMMARY | 2024-04-20 00:05 | XMS_ITS | Encounter Summary ---
Author Organization [facility] [place] [address] Care Team Providers Care Electrotype Finisher Name Role Phone Unavailable Primary Care Provider Unavailabl e Encounter Details Date Type Department Care Team (Late st Contact Info) Description 05/02/2007 - 05/02/2007 11:59 PM EST Hospital Encounter Radiology Library at [facility] [place] [id number] [address] Marge Temporary Screening Discharge Disposition: Home [...] Comments FILM LIBRARY STORAGE ONLY MAMMO Routine 05/02/2007 12:00 AM EST Screening documented in this encounter Results * Film Library- Storage only Mammo (05/02/2007 12:00 AM EST) Narrative [facility] - 07/30/2015 10:56 AM EDT See PACS for result report. Temporary Marge IMG FILM LIBRARY ORD ERABLES [facility] [place] documented in this encounter Visit Diagnoses Diagnosis Screening Screening for unspecified condition documented in this encounter
--- OUTSIDE RECORDS SUMMARY | 2024-04-20 00:05 | XMS_ITS | Encounter Summary ---
Author Organization [facility] Address [address] [place] [address] Care Team Providers Care Quality Specialist Name Role Phone Unavailable Primary Care Provider Unavailabl e Encounter Details Date Type Department Care Team (Late st Contact Info) Description 06/23/2001 Results Only [facility] [place] conversion [address] [place] [address] Winifred Diego, DEACON Social History Tobacco Use [...] Priority Date/Time Associated Diagnosis Comments CYTOPATHOLOGY Routine 06/23/2001 0:00 EST documented in this encounter Results * CYTOPATHOLOGY (06/23/2001 0:00 EST) Pathology Report: CYTOPATHOLOGY REPORT Reports generated via electronic interface contain original data; however they are lacking the format of the original report. Caution should be taken when reading/interpreti ng unformatted reports. Name: ? BIGG FIGUEROA ? Accession #: ? [id number] : ? 1960 (Age: 41) ??F ?Collect Date: ? 06/23/2001 Location: ? [facility] ? Receive Date: ? 06/27/2001 Provider: ?WINIFRED DIEGO DIAMOND SELECTOR Copy to: ? Specimen/Source: ?ThinPrep Pap Test, Cervix/Endocervix Last Menstrual Period: ? 06/10/01 Other: ? Additional clinical information: Atypical ? SPECIMEN ADEQUACY ? Satisfactory for Evaluation - transformation zone component present GENERAL CATEGORIZATION ? Negative for Intraepithelial Lesion or Malignancy ? Document reviewed and electronically signed by: ? Hilario Loaiza, CT(ASCP) ? Report Date: ??06/30/2001 12:29 End of Report ASHLEY BARILLAS 06/23/2001 06/27/2001 us Winifred Diego DIAMOND SELECTOR PATHOLOGY ORDERABLES Final Re sult [facility] [address] [place] [address] documented in this encounter Visit Diagnoses Not on filedocumented in this encounter
--- NOTE | 2024-04-20 09:43 | DI.MAMMO_ITS ---
Exam(s) MAMMO SCREENING EXAM: MAMMO SCREENING CLINICAL HISTORY: Z12.39 Screening TECHNIQUE: Mammograms were interpreted according to the usual protocol including computer analysis w Imaging3 CAD system, tomosynthesis and C-view imaging. COMPARISON: 2015 through 2022 FINDINGS: The breasts are composed of heterogeneously dense fibroglandular densities, Breast Density category C . No suspicious masses or suspicious microcalcifications are seen. No skin thickening or abnormal axillary lymph nodes are seen. There has been no significant change from prior exams. IMPRESSION: BI-RADS Category 1, Negative mammogram. Yearly screening mammography is recommended. Breast Density Category C, heterogeneously Dense. The mammogram demonstrates the patient's breast tissue is dense. Dense breast tissue is very common a nd is not abnormal but dense breast tissue can make it harder to find cancer on a mammogram. Also, de nse breast tissue may increase breast cancer risk. This information about the result of the mammogram report was provided to the patient to raise their awareness. Use this report when you speak with the patient about their risks for breast cancer, which includes their family history. At that time, you may recommend additional screening tests (Ultrasound or MRI) as they might be useful based on their r isk. A negative radiographic report should not delay biopsy if a dominant or clinically suspicious mass is present. Up to ten percent of cancers are not identified on mammography. A negative report may reinforce clinical impression. Adenosis and dense breasts may obscure an underlying neoplasm. False positive reports average 6 to 10%.
== END 2024-04-20 00:21 ==
PROVIDERS: PCP Physician Assistant Medical; Visit Provider Physician Assistant Medical
DX: Z12.31 Encounter for screening mammogram for malignant neoplasm of breast (principal); R92.333 Mammographic heterogeneous density, bilateral breasts
CPT/HCPCS: 77063; 77067

== ENCOUNTER → 2025-04-25 11:23 | Outpatient (CLI) | payer MEDICARE, SELFPAY ==
--- NOTE | 2025-04-25 | DI.MAMMO_ITS ---
Exam(s) MAMMO SCREENING EXAM: MAMMO SCREENING CLINICAL HISTORY: SCREENING, Z12.39 TECHNIQUE: Mammograms were interpreted according to the usual protocol including computer analysis with CAD system, tomosynthesis and C-view imaging. COMPARISON: 2015 through 2023 FINDINGS: The breasts are composed of heterogeneously dense fibroglandular densities, Breast Density category C. No suspicious masses or suspicious microcalcifications are seen. No skin thickening or abnormal axillary lymph nodes are seen. There has been no significant change from prior exams. IMPRESSION: BI-RADS Category 1, Negative mammogram. Yearly screening mammography is recommended. Breast Density: Category C - The breasts are heterogeneously dense, which may obscure small masses. Breast density Category C or D implies that the patient has dense breast tissue. Dense breast tissue can make it harder to find cancer on a mammogram. Dense breast tissue is also associated with an increased risk of breast cancer. This information about the result of the mammogram report was provided to the patient to raise their awareness. Use this report when you speak with the patient about their risks for breast cancer, which includes their family history. At that time, you may recommend additional screening tests (Ultrasound or MRI) as these tests may add significant information. A negative radiographic report should not delay biopsy if a dominant or clinically suspicious mass is present. Up to ten percent of cancers are not identified on mammography. A negative report may reinforce clinical impression. Adenosis and dense breasts may obscure an underlying neoplasm. False positive reports average 6 to 10%.
== END ==
LOC: DI 11:23
PROVIDERS: PCP Physician Assistant Medical; Visit Provider Physician Assistant Medical
DX: Z12.31 Encounter for screening mammogram for malignant neoplasm of breast (principal); R92.323 Mammographic fibroglandular density, bilateral breasts; R92.333 Mammographic heterogeneous density, bilateral breasts
CPT/HCPCS: 77063; 77067